=== PATIENT | male | born 1940 | race Caucasian/White ===

== ENCOUNTER 2018-05-16 09:55 | Inpatient (IN) ==
[2018-05-16] MEDS ORDERED: MethylPREDNISolone Sod Succinate Inj 125 MG/2 ML Vial IV.PUSH ONE (10:19)
[2018-05-16] MEDS ORDERED: Famotidine PF Inj 20 MG/2 ML Vial IV.PUSH ONE (10:19)
--- NOTE | 2018-05-16 10:36 | ED ---
HPI General Chief complaint: Allergic Reaction Stated complaint: allergic reaction Time Seen by Provider: 05/16/18 10:11 Source: patient Mode of arrival: EMS Limitations: no limitations History of Present Illness HPI narrative: No previous known drug allergy Past medical history significant for atrial fibrillation hypercholesterolemia hypertension gout aneurysm repair CABG. The patient stated that he was seen at an urgent care for right lower extremity cellulitis, given Bactrim DS p.o. twice daily for treatment. The medication filled yesterday and took the first medication today, within 30-40 minutes of taking the medication the patient started to develop a rash that was itchy throughout his upper extremities around part of his face and chest. Patient called 911 who gave him Benadryl and IV fluids and Zofran because by the time they showed up he was experiencing some nausea as well. The patient also c/o onset of overnight belching, nausea, diarrhea and abdominal cramps which was occurring PRIOR to taking bactrim and developing the above rash.... MD complaint: Reports allergic reaction and hives Onset (ago): minute(s) Exposure: Reports medication (bactrim) Symptoms: Reports rash, itching and nausea Severity: mild Treatment prior to arrival: Reports benadryl, IV fluids and other (by ems) Previous Allergic Reaction History: Reports none Related Data Home Medications Medication Instructions Recorded Confirmed allopurinol 300 mg PO 3XW 05/16/18 05/16/18 cilostazol 100 mg PO BID 05/16/18 05/16/18 clopidogrel 75 mg PO DAILY 05/16/18 05/16/18 lisinopril-hydrochlorothiazide 1 tab PO BID 05/16/18 05/16/18 metoprolol tartrate 50 mg PO BID 05/16/18 05/16/18 nitroglycerin 0.4 mg SUBLINGUAL Q5-15M PRN 05/16/18 05/16/18 simvastatin 40 mg PO DAILY 05/16/18 05/16/18 warfarin 2 mg PO DAILY 05/16/18 05/16/18 Allergies Allergy/AdvReac Type Severity Reaction Status Date / Time hydrocodone Allergy Severe Rash Verified 05/16/18 10:36 morphine Allergy Severe Rash Verified 05/16/18 10:36 Penicillins Allergy Severe Rash Verified 05/16/18 10:36 sulfamethoxazole Allergy Severe Rash Verified 05/16/18 10:36 [From ] trimethoprim [From ] Allergy Severe Rash Verified 05/16/18 10:36 Review of Systems ROS: all other systems reviewed are negative PMFSH History History Provided By: Patient Medical History Medical History A-fib (Acute) Aneurysm (Acute) Gout (Acute) High cholesterol (Acute) Hypertension (Acute) Surgical History Surgical History Hx of CABG (Acute) Hx of inguinal hernia surgery (Acute) Social History Social History Substance History: No History of Abuse Second Hand Smoke Exposure: No Smoking Status: Former smoker Tobacco Type: Cigarettes How Often Do You Have a Drink Containing Alcohol: Never Recent Travel in [facility] within the Last 8 Weeks: Yes Recent Out of Country Travel within the Last 8 Weeks: No Exam Narrative Exam Narrative: GENERAL: Well-nourished, well-developed patient in no apparent distress. SKIN: Warm and dry. Noted macular rash to bilateral upper extremities part of his upper torso chest anteriorly and some speckles left all over cheeks, HEAD: Atraumatic. Normocephalic. EYES: Pupils equal and round. No scleral icterus. No injection or drainage. ENT: No nasal bleeding or discharge. Mucous membranes pink and moist. No lip tongue or uvular edema NECK: Trachea midline. No JVD. No stridor CARDIOVASCULAR: tachycardic rate and regular rhythm. no rubs or gallops RESPIRATORY: No accessory muscle use. Clear to auscultation. Breath sounds equal bilaterally. No wheezing GASTROINTESTINAL: Abdomen soft, diffuse abd discomfort , nondistended. No rebound or guarding...hyperactive bowel sounds MUSCULOSKELETAL: Extremities without clubbing, cyanosis, or edema. No obvious deformities. anterior distal hand has a small abrasion that has sorrounding edema and cellulitic changes without streaking or drainage. NEUROLOGICAL: Awake and alert. No obvious cranial nerve deficits. Motor grossly within normal limits. Five out of 5 muscle strength in the arms and legs. Normal speech. PSYCHIATRIC: Appropriate mood and affect; insight and judgment normal. Course Initial Documented Vital Signs Temperature 100.1 F H 05/16/18 09:55 Pulse Rate 115 H 05/16/18 09:55 Respiratory Rate 20 05/16/18 09:55 Blood Pressure 114/63 05/16/18 09:55 Pulse Oximetry 92 L 05/16/18 09:55 Last Documented Vital Signs Temperature 100.1 F H 05/16/18 09:55 Pulse Rate 114 H 05/16/18 10:00 Respiratory Rate 20 05/16/18 09:55 Blood Pressure 114/63 05/16/18 09:55 Pulse Oximetry 92 L 05/16/18 10:00 Critical Care Time Critical Care Time: Yes Total Critical Care Time: 60 Attestation: Aggregate critical care time was 60 minutes. Time to perform other separately billable procedures was not included in the critical care time. My time did not include minutes spent treating any other patients simultaneously or on activities that did not directly contribute to the patient's treatment. The services I provided to this patient were to treat and/or prevent clinically significant deterioration I provided critical care services requiring my management, as noted below: Chart data review, documentation time, medication orders and management, vital sign assessments/reviewing monitor data, ordering and reviewing lab tests, ordering and interpreting/reviewing x-rays and diagnostic studies, care of the patient and discussion of the patient with the admitting physicians. Medical Decision Making MDM Narrative Medical decision making narrative: rash is improving greatly and no longer pruritic....however the patient was noted to be low grade fever 100.1 oral, tachy 114, and hypotensive systolic in 80's improved to high 90's and low 100 after saline bolus. this is consistent with sepsis unknown source, possibly GI (as cellulitic findings on rt LE is mild at best). CBC shows leukocytosis of 13.5, 89% neutrophilia left shift, no anemia. Mild thrombocytopenia of 132 Electrolytes show acute renal failure BUN of 34 creatinine of 2.9 GFR 21 lactic acid of 2.3 Normal CK-MB percent 0.6 however troponin elevated 0.08 suggesting this is over several days and it is not an acute less than 12-hour event(resolving nonstemi) Medical Screen Exam Complete: Yes Emergency Medical Condition: Yes Lab Data Result diagrams: 05/16/18 10:40 05/16/18 10:40 Lab Results 05/16/18 05/16/18 05/16/18 Range/Units 10:40 10:40 10:40 CBC w Diff Auto diff final WBC 13.5 H (4.0-11.0) th/mm3 RBC 4.35 L (4.50-5.90) mil/mm3 Hgb 11.7 L (13.0-17.0) gm/dL Hct 36.5 L (39.0-51.0) % MCV 84.1 (80.0-100.0) fL MCH 27.0 (27.0-34.0) pg MCHC 32.1 (32.0-36.0) % RDW 15.1 (11.6-17.2) % Plt Count 132 L (150-450) th/mm3 MPV 9.4 (7.0-11.0) fL Neut % (Auto) 88.7 H (16.0-70.0) % Lymph % (Auto) 4.4 L (9.0-44.0) % Briscoe % (Auto) 4.1 (0.0-8.0) % Eos % (Auto) 2.6 (0.0-4.0) % Baso % (Auto) 0.2 (0.0-2.0) % Neut # (Auto) 11.9 H (1.8-7.7) th/mm3 Lymph # (Auto) 0.6 L (1.0-4.8) th/mm3 Briscoe # (Auto) 0.6 (0.0-0.9) th/mm3 Eos # (Auto) 0.4 (0.0-0.4) th/mm3 Baso # (Auto) 0.0 (0.0-0.2) th/mm3 WBC Differential . Differential Comment . Sodium 139 (136-145) meq/L Potassium 4.3 (3.5-5.1) meq/L Chloride 108 H (98-107) meq/L Carbon Dioxide 23.4 (21.0-32.0) meq/L Anion Gap 8 (5-15) meq/L BUN 34 H (7-18) mg/dL Creatinine 2.90 H (0.60-1.30) mg/dL Estimated GFR 21 L (>89) mL/min Random Glucose 128 H (74-106) mg/dL Lactic Acid 2.3 H (0.4-2.0) mmol/L Calcium 8.0 L (8.5-10.1) mg/dL Total Bilirubin 0.8 (0.2-1.0) mg/dL AST 14 L (15-37) U/L ALT 13 (12-78) U/L Alkaline Phosphatase 85 (45-117) U/L Total Creatine Kinase 357 H (39-308) U/L CK-MB (CK-2) 2.1 (0.5-3.6) ng/mL CK-MB (CK-2) % 0.6 (0.0-4.0) % Troponin I 0.08 H (0.02-0.05) ng/mL Total Protein 6.0 L (6.4-8.2) g/dL Albumin 2.8 L (3.4-5.0) g/dL Imaging Data Radiologist's impression: Chest X-Ray 05/16/18 10:17 CONCLUSION: The lungs are clear. Discharge Plan Discharge Disposition [place] [facility] [place] Condition: Fair Discharge Details Diagnosis: Septic shock, Cellulitis, Renal failure Physicians Team ED Provider: Juwan Perez Primary Care Provider: UNKNOWN, Rxs /Orders / Referrals /Forms Prescriptions: No Action cilostazol 100 mg Tablet 100 mg PO BID RF: 0 lisinopril-hydrochlorothiazide 20-12.5 mg Tablet 1 tab PO BID RF: 0 clopidogrel 75 mg Tablet 75 mg PO DAILY RF: 0 simvastatin 40 mg Tablet 40 mg PO DAILY RF: 0 warfarin 2 mg Tablet 2 mg PO DAILY RF: 0 metoprolol tartrate 50 mg Tablet 50 mg PO BID RF: 0 nitroglycerin 0.4 mg Tablet, Sublingual 0.4 mg SUBLINGUAL Q5-15M PRN (Reason: Chest Pain) RF: 0 allopurinol 300 mg Tablet 300 mg PO 3XW RF: 0 Status ED Status: With Doctor
--- NOTE | 2018-05-16 10:46 | XR ---
EXAM DATE: 05/16/2018 10:43 AM EST AGE/SEX: 78 years / Male INDICATIONS: Medication reaction for lower extremity infection. Patient states rash and nausea. CLINICAL DATA: This is the patient's initial encounter. Patient reports that signs and symptoms have been present for 1 day and indicates a pain score of 2/10. MEDICAL/SURGICAL HISTORY: Hypercholesterolemia. Hypertension. Gout. A-fib. Abdominal aortic a neurysm repair. CABG. Inguinal hernia repair. COMPARISON: No prior exams available for comparison. FINDINGS: A single AP view of the chest demonstrates the lungs to be symmetrically aerated without evidence of mass, infiltrate or effusion. Status post CABG. The cardiomediastinal contours are unremarkable. Oss eous structures are intact. CONCLUSION: The lungs are clear. Electronically signed by: José Manuel Chaparro MD Board Certified Radiologist 05/16/2018 10:45 AM EST
[2018-05-16] MEDS ORDERED: Acetaminophen 325 MG Tablet PO ONE (11:03)
[2018-05-16 11:11] LABS: Baso % (Auto) 0.2 % (0.0-2.0); Eos # (Auto) 0.4 th/mm3 (0.0-0.4); Eos % (Auto) 2.6 % (0.0-4.0); Hematocrit 36.5 % (39.0-51.0); Hemoglobin 11.7 gm/dL (13.0-17.0); Lymph # (Auto) 0.6 th/mm3 (1.0-4.8); Lymph % (Auto) 4.4 % (9.0-44.0); Mean Corpuscular HGB Conc 32.1 % (32.0-36.0); Mean Corpuscular Volume 84.1 fL (80.0-100.0); Mean Platelet Volume 9.4 fL (7.0-11.0); Mono # (Auto) 0.6 th/mm3 (0.0-0.9); Mono % (Auto) 4.1 % (0.0-8.0); Neut # (Auto) 11.9 th/mm3 (1.8-7.7); Neut % (Auto) 88.7 % (16.0-70.0); Platelet Count 132 th/mm3 (150-450); Red Blood Count 4.35 mil/mm3 (4.50-5.90); Red Cell Distribution Width 15.1 % (11.6-17.2); White Blood Count 13.5 th/mm3 (4.0-11.0)
[2018-05-16 11:25] LABS: Chloride 108 meq/L (98-107); Potassium 4.3 meq/L (3.5-5.1); Sodium 139 meq/L (136-145)
[2018-05-16 11:28] LABS: Albumin 2.8 g/dL (3.4-5.0); Anion Gap 8 meq/L (5-15); Blood Urea Nitrogen 34 mg/dL (7-18); Carbon Dioxide 23.4 meq/L (21.0-32.0); Glucose,Random 128 mg/dL (74-106)
[2018-05-16 11:31] LABS: Alanine Aminotransferase 13 U/L (12-78); Aspartate Aminotransferase 14 U/L (15-37); Glomerular Filtration Rate 21 mL/min (>89)
[2018-05-16 11:34] LABS: Alkaline Phosphatase 85 U/L (45-117); Creatine Kinase 357 U/L (39-308)
[2018-05-16 11:36] LABS: Troponin I 0.08 ng/mL (0.02-0.05)
[2018-05-16 11:46] LABS: CKMB Percent 0.6 % (0.0-4.0); Creatine Kinase MB 2.1 ng/mL (0.5-3.6)
[2018-05-16] MEDS ORDERED: Sodium Chlor 0.9% Inj 500 ML IV.SIG SCH ×2 (12:00)
[2018-05-16] MEDS ORDERED: Acetaminophen 325 MG Tablet PO PRN (12:06)
[2018-05-16] MEDS ORDERED: Bisacodyl 10 MG Supp RECTAL PRN (12:06)
[2018-05-16] MEDS ORDERED: Aztreonam Inj 2 GM in Sodium Chloride 0.9% Inj 100 ML IV.SIG ONE (12:08)
[2018-05-16] MEDS ORDERED: Dextrose 50% in Water 50 ML Vial IV.PUSH PRN (12:10)
[2018-05-16 12:11] LABS: Activated Partial Thrombo Time 32.9 sec (23.4-31.7); Prothrombin Time 20.4 sec (9.8-11.6)
[2018-05-16] MEDS ORDERED: Norepinephrine Inj 16 MG in Sodium Chlor 0.9% Inj 234 ML IV.CONT PRN (12:13)
--- NOTE | 2018-05-16 12:50 | CT ---
EXAM DATE: 05/16/2018 12:39 PM EST AGE/SEX: 78 years / Male INDICATIONS: Abdominal cramps, nausea and diarrhea. Low blood pressure. Allergic reaction of hives t o a medication yesterday. CLINICAL DATA: This is the patient's initial encounter. Patient reports that signs and symptoms have been present for 1 day and indicates a pain score of 0/10. MEDICAL/SURGICAL HISTORY: Cardiovascular disease. Hypertension. Abdominal aortic aneurysm repa ir. CABG. Inguinal hernia repair. RADIATION DOSE: 21.94 CTDI (mGy) COMPARISON: No prior exams available for comparison. TECHNIQUE: Multiple contiguous axial images were obtained through the abdomen. Images were obtained using multiple row detector helical technique. Using automated exposure control and adjustment of the mA and/or kV according to patient size, radiation dose was kept as low as reasonably achievable to o btain optimal diagnostic quality images. DICOM format image data is available electronically for rev iew and comparison. FINDINGS: There is bibasilar atelectasis versus scar. The liver is normal in size and free of focal defects. Mu ltiple calcified granulomas are present in the spleen. The gallbladder and pancreas are unremarkable . No intrahepatic or extrahepatic ductal dilatation is seen. The adrenal glands are unremarkable. The re are simple cysts on the right the largest measuring 4 cm. The left kidney is unremarkable. There i s previous repair of a midline hernia with hernia defect bulging into the subcutaneous tissues but no signs of incarceration. The prostate gland is moderately enlarged impinging on the bladder base. There is extensive diverticu losis with inflammatory change at the junction of descending colon and sigmoid which may reflect dive rticulitis. There is no evidence of abscess. This is a very short segment of 4 to 5 cm. Stents are present in aneurysms of the common iliac arteries bilaterally. Contrast is not administere d in the presence or absence of leak cannot be determined. There is no evidence of retroperitoneal he matoma. CONCLUSION: Findings of diverticulitis without abscess at the junction of descending and sigmoid colon Bilateral iliac artery stents as above. 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 CT angiography could be performed to further evaluate this if clinically indicated Electronically signed by: Gio Canales MD Board Certified Radiologist 05/16/2018 12:49 PM EST
[2018-05-16] MEDS: Sod Chloride 0.9% Inj 1,000 ML IV.CONT SCH ×2 (12:51→23:31)
[2018-05-16] MEDS ORDERED: Vancomycin Consult Pharmacy OTHER PRN (14:00)
[2018-05-16] MEDS: Heparin - SQ 10,000 UNITS/ML Vial SQ SCH (14:27)
--- NOTE | 2018-05-16 14:49 | US ---
EXAM DATE: 05/16/2018 2:45 PM EST AGE/SEX: 78 years / Male INDICATIONS: Lower extremity cellulitis with sepsis. CLINICAL DATA: This is the patient's initial encounter. Patient reports that signs and symptoms have been present for 2 days and indicates a pain score of 0/10. MEDICAL/SURGICAL HISTORY: Hypercholesterolemia. Hypertension. Gout. Atrial fibrillation. CAB G. Umbilical hernia repair. Multiple aneurysm repair in the abdomen and the lower extremities. Bila teral GSV removal. COMPARISON: No prior exams available for comparison. TECHNIQUE: Venous ultrasound of both lower extremities was performed from the inguinal ligament to t he proximal calf. Real-time, color Doppler and spectral tracing, compression and augmentation techni ques were used. FINDINGS: Right Leg: Normal compression of the deep venous system from the inguinal region to the proximal hakan f. No echogenic clot is seen. Normal response of the venous system to augmentation and respiration. Left Leg: Normal compression of the deep venous system from the inguinal region to the proximal calf . No echogenic clot is seen. Normal response of the venous system to augmentation and respiration. Other: Heterogeneous fluid collections in the popliteal fossa measures 5.5 x 3.4 x 3.4 cm on the rig ht and 5.6 x 2.5 x 3.4 cm and the left. There also appears to be occlusion of the left superficial fe moral artery with severe peripheral vascular disease. CONCLUSION: 1. The study is negative for bilateral lower extremity deep venous thrombosis. 2. Probable hematomas within the popliteal fossa bilaterally likely postsurgical. 3. 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 Electronically signed by: José Manuel Chaparro MD Board Certified Radiologist 05/16/2018 2:47 PM EST
--- NOTE | 2018-05-16 15:06 | US ---
EXAM DATE: 05/16/2018 2:32 PM EST AGE/SEX: 78 years / Male INDICATIONS: Increased BUN and Creatinine. Sepsis. CLINICAL DATA: This is the patient's initial encounter. Patient reports that signs and symptoms have been present for 1 day and indicates a pain score of 0/10. MEDICAL/SURGICAL HISTORY: Hypercholesterolemia. Hypertension. Cardiovascular disease. Gout. Atrial fibrillation. CABG. Multiple aneurysm repair. Umbilical hernia repair. COMPARISON: [facility], CT ABDOMEN & PELVIS W/O CONTRAST, 05/16/2018. . MEASUREMENTS: Right Kidney:__11.5 x 5.8 x 6.4 cm Left Kidney:__10.6 x 6.8 x 6.4 cm FINDINGS: Echogenic kidneys characteristic of medical renal disease. There is prominent renal sinus fat. Exophy tic cyst right kidney measuring up to 6.2 cm in diameter. Other smaller cysts in the right kidney. No left renal mass. No hydronephrosis. Bladder wall appears thickened. CONCLUSION: 1. Echogenic kidneys characteristic of medical renal disease. Right renal cysts. No hydronephrosis. Thickened bladder wall. Electronically signed by: Francis Lui MD Board Certified Radiologist 05/16/2018 3:05 PM EST
[2018-05-16] MEDS ORDERED: Vancomycin Inj 1,600 MG in Sodium Chlor 0.9% Inj 500 ML IV.SIG ONE (16:00)
--- NOTE | 2018-05-16 16:22 | P.HPCC ---
History of Present Illness Service: Critical care medicine Primary Care Physician: UNKNOWN Chief Complaint: Weakness/rash History of Present Illness: This is a 78-year-old male. Date of admission 05/16/2018. Past medical history includes coronary disease status post CABG x4, peripheral vascular disease, hypertension, hyperlipidemia gout and chronic warfarin use. On Sunday, patient had a fall and had an abrasion to the anterior tibial aspect of his right lower extremity. He went to an urgent care and received trimethoprim/sulfamethoxazole 1 tablet twice daily for treatment. He did not take the steroids because overnight he had some abdominal pain/nausea and vomiting which has since resolved. This is consistent diarrhea. He took his first dose of the medicine today within 40 minutes started to develop a rash is itchy and involves his bilateral upper and lower extreme is. Patient emergently called 911 who gave him diphenhydramine, ondansetron and intravenous fluids. Was evaluated to [facility] and received diphenhydramine and famotidine and 1 dose of steroids. Patient became hypotensive and was started on norepinephrine drip intravenously. CT emesis post revealed sigmoid diverticulitis. He has been given vancomycin, aztreonam and metronidazole. Due to multiple creatinine is currently 2.9. Due to his multiple comorbid patient was transferred to the main campus for further evaluation. He is currently been weaned off his vasopressors. We are asked to admit the patient. - Diagnosis (1) Drug reaction (2) Acute kidney injury (3) Peripheral vascular disease (4) Gout (5) Severe sepsis (6) Essential hypertension (7) Hyperlipidemia (8) Chronic anticoagulation (9) Atrial fibrillation (10) Abdominal aortic aneurysm (11) Diverticulitis large intestine (12) Renal cyst, right (13) Leukocytosis (14) Normocytic anemia (15) Thrombocytopenia (16) Occlusion of left saphenous vein (17) Cellulitis Inpatient Certification: I certify that the inpatient services were ordered in accordance with Medicare regulations governing the order. This includes certification that hospital inpatient services are reasonable and necessary and in the case of services not specified as inpatient-only under 42 CFR 419.22(n), that they are appropriately provided as inpatient services in accordance to with the 2-midnight benchmark under 43 CFR 412.3(e) Estimated Total Length of Stay (Days): 5 Plans for Post Hospital Care: Not yet determined Review of Systems Constitutional: Reports body ache(s), Reports chills, Reports fever(s), Reports night sweats, Reports weakness, Denies anorexia, Denies weight gain Eyes: Denies blind spots, Denies blurry vision Ears, Nose, Mouth, and Throat: Denies abnormal hearing, Denies lip swelling, Denies pain with swallowing, Denies sinus pain Cardiovascular: Denies chest pain, Denies shortness of breath, Denies shortness of breath with activity, Denies shortness of breath when lying down Respiratory: Denies cough, Denies shortness of breath, Denies shortness of breath with activity Gastrointestinal: Reports abdominal pain, Reports nausea, Denies vomiting Genitourinary: Denies urinary frequency, Denies urinary hesitancy, Denies urinary incontinence Musculoskeletal: Denies back pain, Denies muscle weakness, Denies stiffness Skin/Breast: Reports lesions, Reports rash, Denies itching Neurologic: Denies headache(s), Denies restless legs, Denies sensory deficit Psychiatric: Reports anxiety, Denies confusion, Denies depression Endocrine: Denies cold intolerance, Denies excessive sweating Hematologic/Lymphatic: Reports easy bleeding, Denies easy bruising Allergic/Immunologic: Denies GI upset with certain foods PMFSH - History History Provided By: Patient - Medical History Medical History: Medical History (Last Updated 05/16/18 @ 16:16 by Emeterio Guzman MD) A-fib Aneurysm Encounter for imaging of bilateral greater saphenous veins Gout High cholesterol Hypertension Peripheral vascular disease - Surgical History Surgical History: Surgical History (Last Updated 05/16/18 @ 16:16 by Emeterio Guzman MD) Hx of CABG Hx of inguinal hernia surgery Status post insertion of iliac artery stent - Tobacco History Second Hand Smoke Exposure: No Tobacco Use In Past 30 Days: No Smoking Status: Former smoker Tobacco Type: Cigarettes - Alcohol History How Often Do You Have a Drink Containing Alcohol: Never - Substance Use History Substance History: No History of Abuse - Travel History Recent Travel in the [place] Within the Last 8 Weeks: Yes Recent Travel Out of the Country Within the Last 8 Weeks: No - Immunization History Tetanus Immunization: <5 Years Medications and Allergies Active Medications: Active Medications Acetaminophen (Tylenol) 650 mg PO Q6H PRN PRN Reason: PAIN 1-10 AND/OR FEVER >101F Al Hydroxide/Mg Hydroxide (Milk Of Magnesia Liq) 30 ml PO Q12H PRN PRN Reason: Mild Constipation Albuterol (Albuterol Neb (Prn)) 2.5 mg NEB Q2HR NEB PRN PRN Reason: SHORTNESS OF BREATH/WHEEZING Bisacodyl (Dulcolax Supp) 10 mg RECTAL DAILY PRN PRN Reason: SEVERE CONSITIPATION Chlorhexidine Gluconate (Chlorhexidine 2% Cloth) 3 pack TOPICAL DAILY@0400 ROSINA Stop: 05/22/18 03:59 Chlorhexidine Gluconate (Chlorhexidine 2% Cloth) 3 pack TOPICAL DAILY@0400 PRN PRN Reason: Extra cloth needed Stop: 05/22/18 03:59 Clopidogrel Bisulfate (Plavix) 75 mg PO DAILY ROSINA Dexamethasone Sodium Phosphate (Decadron Inj) 4 mg IV.PUSH Q6HR ROSINA Stop: 05/18/18 12:01 Dextrose (D50w Vial) 50 ml IV.PUSH UNSCH PRN PRN Reason: PER HYPOGLYCEMIA PROTOCOL Diphenhydramine HCl (Benadryl Inj) 25 mg IV.PUSH Q6H ROSINA Stop: 05/18/18 08:01 Last Admin: 05/16/18 14:24 Dose: 25 mg Famotidine (Pepcid Pf Inj) 10 mg IV.PUSH Q12HR ROSINA Glucagon (Glucagon Inj) 1 mg OTHER PRN PRN PRN Reason: for Hypoglycemia Protocol Heparin Sodium (Porcine) (Heparin Inj) 5,000 units SQ Q12H ROSINA Last Admin: 05/16/18 14:27 Dose: 5,000 units Sodium Chloride (Ns Inj) 1,000 mls @ 84 mls/hr IV.CONT .[id number] [facility] Last Admin: 05/16/18 12:51 Dose: 84 mls/hr Aztreonam 1,000 mg/ Sodium (Chloride) 100 mls @ 200 mls/hr IV.SIG Q12H ROSINA Metronidazole/Sodium Chloride (Flagyl 500 Mg Inj) 100 mls @ 100 mls/hr IV.SIG Q6H ROSINA Norepinephrine Bitartrate 16 (mg/ Sodium Chloride) 250 mls @ 1.87 mls/hr IV.CONT TITRATE PRN; Protocol PRN Reason: See Protocol Vancomycin HCl 1,600 mg/ (Sodium Chloride) 516 mls @ 250 mls/hr IV.SIG ONCE ONE Stop: 05/16/18 18:03 Insulin Aspart (Novolog Insulin Correctional Sugar Inj) 0 unit SQ Q6HR ROSINA; Protocol Lactulose (Lactulose Liq) 30 ml PO DAILY PRN PRN Reason: SEVERE CONSITIPATION Ondansetron HCl (Zofran Inj) 4 mg IV.PUSH Q6H PRN PRN Reason: NAUSEA OR VOMITING Pharmacy Profile Note (Vancomycin Consult Pharmacy) 1 each OTHER UNSCH PRN PRN Reason: Pharmacy to dose Senna/Docusate Sodium (Eula-Colace) 1 tab PO BID [facility] Sennosides (Senokot) 17.2 mg PO Q12H PRN PRN Reason: Moderate Constipation Sodium Chloride (Ns Flush) 2 ml IV.FLUSH BID [facility] Sodium Chloride (Ns Flush) 2 ml IV.FLUSH PRN PRN PRN Reason: FLUSH AFTER USING IV ACCESS Terbutaline Sulfate (Brethine Inj) 1 mg SQ UNSCH PRN PRN Reason: For Extravasation Allergies Allergy/AdvReac Type Severity Reaction Status Date / Time hydrocodone Allergy Severe Rash Verified 05/16/18 10:36 morphine Allergy Severe Rash Verified 05/16/18 10:36 Penicillins Allergy Severe Rash Verified 05/16/18 10:36 sulfamethoxazole Allergy Severe Rash Verified 05/16/18 10:36 [From ] trimethoprim [From ] Allergy Severe Rash Verified 05/16/18 10:36 Home Medications Medication Instructions Recorded Confirmed Type allopurinol 300 mg PO 3XW 05/16/18 05/16/18 History cilostazol 100 mg PO BID 05/16/18 05/16/18 History clopidogrel 75 mg PO DAILY 05/16/18 05/16/18 History lisinopril-hydrochlorothiazide 1 tab PO BID 05/16/18 05/16/18 History metoprolol tartrate 50 mg PO BID 05/16/18 05/16/18 History nitroglycerin 0.4 mg SUBLINGUAL Q5-15M PRN 05/16/18 05/16/18 History simvastatin 40 mg PO HS 05/16/18 05/16/18 History warfarin 2 mg PO DAILY 05/16/18 05/16/18 History Results - Labs CBC & Chem 7: 05/16/18 10:40 05/16/18 10:40 Labs: Short CBC 05/16/18 Range/Units 10:40 WBC 13.5 H (4.0-11.0) th/mm3 Hgb 11.7 L (13.0-17.0) gm/dL Hct 36.5 L (39.0-51.0) % Plt Count 132 L (150-450) th/mm3 BMP 05/16/18 10:40 Sodium 139 Potassium 4.3 Chloride 108 H Carbon Dioxide 23.4 BUN 34 H Creatinine 2.90 H Calcium 8.0 L Cardiac Enzymes 05/16/18 Range/Units 10:40 Total Creatine Kinase 357 H (39-308) U/L CK-MB (CK-2) 2.1 (0.5-3.6) ng/mL Troponin I 0.08 H (0.02-0.05) ng/mL Liver Function 05/16/18 Range/Units 10:40 Total Bilirubin 0.8 (0.2-1.0) mg/dL AST 14 L (15-37) U/L ALT 13 (12-78) U/L Alkaline Phosphatase 85 (45-117) U/L Albumin 2.8 L (3.4-5.0) g/dL - Imaging Impressions Venous Doppler Study 05/16/18 00:00 CONCLUSION: 1. The study is negative for bilateral lower extremity deep venous thrombosis. 2. Probable hematomas within the popliteal fossa bilaterally likely postsurgical. 3. 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 Chest X-Ray 05/16/18 10:17 CONCLUSION: The lungs are clear. Abdomen/Pelvis CT 05/16/18 11:55 CONCLUSION: Findings of diverticulitis without abscess at the junction of descending and sigmoid colon Bilateral iliac artery stents as above. 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 CT angiography could be performed to further evaluate this if clinically indicated Abdomen/Bladder Ultrasound 05/16/18 12:11 CONCLUSION: 1. Echogenic kidneys characteristic of medical renal disease. Right renal cysts. No hydronephrosis. Thickened bladder wall. Exam Vital signs: Vital Signs 05/16/18 09:55 05/16/18 10:00 05/16/18 10:15 Temperature 100.1 F H Pulse Rate 115 H 114 H 118 H Respiratory Rate 20 18 Blood Pressure 114/63 105/50 L Pulse Oximetry 92 L 92 L 91 L 05/16/18 10:30 05/16/18 10:45 Temperature Pulse Rate 112 H 116 H Respiratory Rate 16 18 Blood Pressure 97/58 L 75/53 L Pulse Oximetry 92 L 92 L Intake & Output 05/15/18 05/16/18 05/16/18 18:59 06:59 18:59 Intake Total 2200 / 2200 Output Total 0 / 0 Balance 2200 / 2200 Weight 103.873 kg Intake: IV 1200 / 1200 Azactam Inj 2 GM In NS Inj 100 100 / 100 ML @ 200 mls/hr IV.SIG ONCE ONE Rx#:[id number] NS Inj 500 ML @ 1000 mls/hr IV. 1000 / 1000 SIG BOLUS ROSINA Rx#:[id number] Flagyl 500 MG Inj 100 ML @ 100 100 / 100 mls/hr IV.SIG ONCE ONE Rx#: [id number] Other 1000 / 1000 Output: Urine 0 / 0 Other: Other Intake Source Saline Solution Narrative: GENERAL: 74-year-old male currently resting in bed in no acute distress SKIN: Warm and dry. Rash HEAD: Atraumatic. Normocephalic. EYES: Pupils equal and round. No scleral icterus. No injection or drainage. ENT: No nasal bleeding or discharge. Mucous membranes pink and moist. NECK: Trachea midline. No JVD. CARDIOVASCULAR: Tachycardia, IR. S1, S2. No S4. RESPIRATORY: No accessory muscle use. Clear to auscultation. Breath sounds equal bilaterally. GASTROINTESTINAL: Abdomen soft, obese. Hypoactive bowel sounds appreciated. No rebound. MUSCULOSKELETAL: Extremities bilateral lower extremity edema. Noted cellulitis to the anterior tibial region of the right lower extremity NEUROLOGICAL: Awake and alert. No obvious cranial nerve deficits. Motor grossly within normal limits. Five out of 5 muscle strength in the arms and legs. Normal speech. PSYCHIATRIC: Appropriate mood and affect; insight and judgment normal. Septic Shock Reassessment Septic shock perfusion: reassessment completed Caprini VTE Risk Assessment Caprini VTE Risk Assessment: Moderate/High Risk (score >= 2) Caprini Risk Assessment Model: Point Value = 1 Point Value = 2 Point Value = 3 Point Value = 5 Age 41-60 Minor surgery BMI > 25 kg/m2 Swollen legs Varicose veins or History of unexplained or recurrent spontaneous Oral contraceptives or hormone replacement Sepsis (< 1 month) Serious lung disease, including pneumonia (< 1 month) Abnormal pulmonary function Acute myocardial infarction Congestive heart failure (< 1 month) History of inflammatory bowel disease Medical patient at bed rest Age 61-74 Arthroscopic surgery Major open surgery (> 45 min) Laparoscopic surgery (> 45 min) Malignancy Confined to bed (> 72 hours) Immobilizing plaster cast Central venous access Age >= 75 History of VTE Family history of VTE Factor V Leiden Prothrombin [id number] Lupus anticoagulant Anticardiolipin antibodies Elevated serum homocysteine Heparin-induced thrombocytopenia Other congenital or acquired thrombophilia Stroke (< 1 month) Elective arthroplasty Hip, pelvis, or leg fracture Acute spinal cord injury (< 1 month) Prophylaxis Regimen: Total Risk Factor Score Risk Level Prophylaxis Regimen 0-1 Low Early ambulation 2 Moderate Order ONE of the following: *Sequential Compression Device (SCD) *Heparin 5000 units SQ BID 3-4 Higher Order ONE of the following medications: *Heparin 5000 units SQ TID *Enoxaparin/Lovenox 40 mg SQ daily (WT < 150 kg, CrCl > 30 mL/min) *Enoxaparin/Lovenox 30 mg SQ daily (WT < 150 kg, CrCl > 10-29 mL/min) *Enoxaparin/Lovenox 30 mg SQ BID (WT < 150 kg, CrCl > 30 mL/min) AND/OR *Sequential Compression Device (SCD) 5 or more Highest Order ONE of the following medications: *Heparin 5000 units SQ TID (Preferred with Epidurals) *Enoxaparin/Lovenox 40 mg SQ daily (WT < 150 kg, CrCl > 30 mL/min) *Enoxaparin/Lovenox 30 mg SQ daily (WT < 150 kg, CrCl > 10-29 mL/min) *Enoxaparin/Lovenox 30 mg SQ BID (WT < 150 kg, CrCl > 30 mL/min) AND *Sequential Compression Device (SCD) Assessment and Plan - Problem List (1) Drug reaction Code(s): T50.905A - Adverse effect of unspecified drugs, medicaments and biological substances, initial encounter Status: Acute (2) Acute kidney injury Code(s): N17.9 - Acute kidney failure, unspecified Status: Acute (3) Peripheral vascular disease Code(s): I73.9 - Peripheral vascular disease, unspecified Status: Chronic (4) Gout Code(s): M10.9 - Gout, unspecified Status: Chronic (5) Severe sepsis Code(s): A41.9 - Sepsis, unspecified organism; R65.20 - Severe sepsis without septic shock Status: Acute (6) Essential hypertension Code(s): I10 - Essential (primary) hypertension Status: Chronic (7) Hyperlipidemia Code(s): E78.5 - Hyperlipidemia, unspecified Status: Chronic (8) Chronic anticoagulation Code(s): Z79.01 - correction (current) use of anticoagulants Status: Chronic (9) Atrial fibrillation Code(s): I48.91 - Unspecified atrial fibrillation Status: Chronic (10) Abdominal aortic aneurysm Code(s): I71.4 - Abdominal aortic aneurysm, without rupture Status: Chronic (11) Diverticulitis large intestine Code(s): K57.32 - Diverticulitis of large intestine without perforation or abscess without bleeding Status: Acute (12) Renal cyst, right Code(s): N28.1 - Cyst of kidney, acquired Status: Chronic (13) Leukocytosis Code(s): D72.829 - Elevated white blood cell count, unspecified Status: Acute (14) Normocytic anemia Code(s): D64.9 - Anemia, unspecified Status: Acute (15) Thrombocytopenia Code(s): D69.6 - Thrombocytopenia, unspecified Status: Acute (16) Occlusion of left saphenous vein Code(s): I82.812 - Embolism and thrombosis of superficial veins of left lower extremity Status: Acute (17) Cellulitis Code(s): L03.90 - Cellulitis, unspecified Status: Acute - Assessment and Plan Plan: Neuro/Psych: Acetaminophen 650 mg p.o. every 6 hours as needed fever Noted allergies to hydrocodone and morphine sulfate CV: Severe sepsis with lactic acidosis Atrial fibrillation with rapid ventricular response Essential hypertension Hyperlipidemia Coronary disease status post CABG x4 Peripheral vascular disease Bilateral greater saphenous vein removal Bilateral iliac stent placement Elevated troponin 0 08 Holding lisinopril/hydrochlorthiazide 20/25 1 tablet twice daily in light of acute injury/vasopressor usage Holding metoprolol tartrate 50 mg twice daily in light of hypotension Holding simvastatin 40 mg daily. Resume if clinically indicated for hyperlipidemia Continue clopidogrel 75 mg daily for peripheral vascular disease. Holding Cilostazol 100 mg twice daily. Resume clinically indicated Lower extremity Doppler revealed left SFA occlusion. Popliteal fossa masses bilaterally. Bocanegra's cyst versus hematomas Serial lactates until cleared. Currently 1.5 Echocardiogram ordered. Serial troponins will downward trend Resp: Nasal cannula to maintain saturations greater than equal to 90% Incentive spirometry while awake As needed albuterol aerosols every 2 hours. Dyspnea Chest x-ray revealed no acute cardiopulmonary findings GI: Diverticulitis CT abdomen/pelvis revealed sigmoid/descending diverticulitis. Bilateral iliac stents. Currently on aztreonam and metronidazole. N.p.o. status currently. Likely can advance to clear liquid diet Famotidine for GI prophylaxis Docusate serum/senna 1 tablet twice daily for bowel regimen : Straight catheterization as needed. No indication for Lala catheter Endo: Hyperglycemia Sliding scale insulin Accu-Cheks to maintain euglycemia Gout Holding allopurinol 300 mg 3 times weekly. Resume when clinically indicated Renal: Acute kidney injury Right renal cyst No signs of hydronephrosis on renal ultrasound. Check urine eosinophils, sodium and creatinine Avoid nephrotoxic medication Monitor urine output Accurate I's and O's Heme: Leukocytosis Normocytic anemia Thrombocytopenia Chronic warfarin use Monitor CBC daily. Follow trends. No indication for transfusion of blood products at this time Currently warfarin 2 mg daily. Continue. Daily INR ID: Right lower extremity cellulitis Sigmoid diverticulitis Currently on vancomycin, aztreonam and metronidazole day #1 Blood cultures x2 pending MSK: Elevated BMI PT evaluate and treat Weight loss encouraged FEN: Currently on 0.9% NaCl at 84 cc an hour Replace electrolytes as clinically indicated Access -Utilize peripheral IV. Central line if indicated Prophylaxis -GI -pantoprazole -DVT -CT/warfarin Critical care time 35 minutes Code Status: Full code Discussed Condition With: Patient. Care plan discussed and all questions answered (1) Drug reaction Qualifiers: Encounter type: sequela Qualified Code(s): T50.905S - Adverse effect of unspecified drugs, medicaments and biological substances, sequela (4) Gout Qualifiers: Gout site: unspecified site Gout etiology: unspecified cause Chronicity: unspecified Qualified Code(s): M10.9 - Gout, unspecified (7) Hyperlipidemia Qualifiers: Hyperlipidemia type: unspecified Qualified Code(s): E78.5 - Hyperlipidemia, unspecified (9) Atrial fibrillation Qualifiers: Atrial fibrillation type: unspecified Qualified Code(s): I48.91 - Unspecified atrial fibrillation (10) Abdominal aortic aneurysm Qualifiers: Presence of rupture: without rupture Qualified Code(s): I71.4 - Abdominal aortic aneurysm, without rupture (11) Diverticulitis large intestine Qualifiers: Diverticulitis complication: unspecified complication status (13) Leukocytosis Qualifiers: Leukocytosis type: unspecified Qualified Code(s): D72.829 - Elevated white blood cell count, unspecified (17) Cellulitis Qualifiers: Site of cellulitis: extremity Site of cellulitis of extremity: lower extremity Laterality: right Qualified Code(s): L03.115 - Cellulitis of right lower limb
[2018-05-16] MEDS ORDERED: Warfarin Consult Pharmacy OTHER PRN (16:37)
--- NOTE | 2018-05-16 16:59 | ECG ---
Date Performed: 05/16/2018 Time Performed: 13:07:36 PTAGE: 78 years EKG: SINUS TACHYCARDIA PROBABLE INFERIOR MYOCARDIAL INFARCTION ABNORMAL ECG NO PREVIOUS TRACING DOCTOR: Garrett Riley Interpretating Date/Time 05/16/2018 16:58:02
[2018-05-16] MEDS: Insulin NovoLOG Aspart Correctional Sugar Inj SQ SCH (17:37)
[2018-05-16] MEDS: Famotidine PF Inj 20 MG/2 ML Vial IV.PUSH SCH (20:20)
[2018-05-16] MEDS: Senna/Docusate Sodium 8.6/50 MG Tablet PO SCH (20:20)
[2018-05-16 20:27] LABS: Creatinine,Urine Random 236 mg/dL (27-300); Sodium,Urine Random 19 meq/L
[2018-05-17] MEDS: Heparin - SQ 10,000 UNITS/ML Vial SQ SCH ×2 (02:39→19:21)
[2018-05-17] MEDS: Insulin NovoLOG Aspart Correctional Sugar Inj SQ SCH ×4 (02:40→17:35)
[2018-05-17] MEDS ORDERED: Chlorhexidine Gluconate 2% 1 Pack (2 Cloths) TOPICAL PRN (04:00)
[2018-05-17] MEDS: Chlorhexidine Gluconate 2% 1 Pack (2 Cloths) TOPICAL SCH (04:59)
[2018-05-17 05:48] LABS: Baso % (Auto) 0.1 % (0.0-2.0); Eos # (Auto) 0.1 th/mm3 (0.0-0.4); Eos % (Auto) 0.5 % (0.0-4.0); Hematocrit 33.3 % (39.0-51.0); Hemoglobin 10.7 gm/dL (13.0-17.0); Lymph # (Auto) 0.6 th/mm3 (1.0-4.8); Mean Corpuscular Hemoglobin 26.9 pg (27.0-34.0); Mean Corpuscular Volume 83.9 fL (80.0-100.0); Mean Platelet Volume 8.3 fL (7.0-11.0); Mono # (Auto) 0.2 th/mm3 (0.0-0.9); Neut # (Auto) 10.8 th/mm3 (1.8-7.7); Neut % (Auto) 92.4 % (16.0-70.0); Platelet Count 103 th/mm3 (150-450); Red Blood Count 3.97 mil/mm3 (4.50-5.90); Red Cell Distribution Width 16.3 % (11.6-17.2); White Blood Count 11.7 th/mm3 (4.0-11.0)
[2018-05-17 06:01] LABS: Activated Partial Thrombo Time 39.2 sec (23.4-31.7); INR 1.9 Ratio; Prothrombin Time 19.4 sec (9.8-11.6)
[2018-05-17 06:22] LABS: Alanine Aminotransferase 17 U/L (12-78); Albumin 2.8 g/dL (3.4-5.0); Anion Gap 11 meq/L (5-15); Aspartate Aminotransferase 31 U/L (15-37); Blood Urea Nitrogen 51 mg/dL (7-18); Calcium 7.9 mg/dL (8.5-10.1); Carbon Dioxide 19.1 meq/L (21.0-32.0); Chloride 108 meq/L (98-107); Glomerular Filtration Rate 15 mL/min (>89); Glucose,Random 165 mg/dL (74-106); Magnesium 1.7 mg/dL (1.5-2.5); Phosphorus 3.4 mg/dL (2.5-4.9); Potassium 4.2 meq/L (3.5-5.1); Sodium 138 meq/L (136-145)
[2018-05-17 06:25] LABS: Alkaline Phosphatase 76 U/L (45-117); Total Protein 6.3 g/dL (6.4-8.2)
--- NOTE | 2018-05-17 08:58 | P.PNCC ---
Subjective Subjective Remarks/Hospital Course: This is a 78-year-old male. Date of admission 05/16/2018. Past medical history includes coronary disease status post CABG x4, peripheral vascular disease, hypertension, hyperlipidemia gout and chronic warfarin use. On Sunday, patient had a fall and had an abrasion to the anterior tibial aspect of his right lower extremity. He went to an urgent care and received trimethoprim/sulfamethoxazole 1 tablet twice daily for treatment. He did not take the steroids because overnight he had some abdominal pain/nausea and vomiting which has since resolved. This is consistent diarrhea. He took his first dose of the medicine today within 40 minutes started to develop a rash is itchy and involves his bilateral upper and lower extreme is. Patient emergently called 911 who gave him diphenhydramine, ondansetron and intravenous fluids. Was evaluated to [facility] and received diphenhydramine and famotidine and 1 dose of steroids. Patient became hypotensive and was started on norepinephrine drip intravenously. CT emesis post revealed sigmoid diverticulitis. He has been given vancomycin, aztreonam and metronidazole. Due to multiple creatinine is currently 2.9. Due to his multiple comorbid patient was transferred to the [facility] for further evaluation. He is currently been weaned off his vasopressors. We are asked to admit the patient. Subjective 05/17: Afebrile. Currently resting in bed in no acute distress. Saturations 94 % on 2 L nasal cannula. Grossly advance diet. As a dental pain. Creatinine increased with 3-4. Objective Vital Signs / I&O: Vital Signs 05/16/18 09:55 05/16/18 10:00 05/16/18 10:15 Temperature 100.1 F H Pulse Rate 115 H 114 H 118 H Respiratory Rate 20 18 Blood Pressure 114/63 105/50 L Pulse Oximetry 92 L 92 L 91 L 05/16/18 10:30 05/16/18 10:45 05/16/18 11:00 Temperature Pulse Rate 112 H 116 H 114 H Respiratory Rate 16 18 16 Blood Pressure 97/58 L 75/53 L 80/53 L Pulse Oximetry 92 L 92 L 93 L 05/16/18 11:20 05/16/18 11:37 05/16/18 11:52 Temperature Pulse Rate 114 H 108 H 112 H Respiratory Rate 16 18 18 Blood Pressure 85/56 L 69/54 L 78/55 L Pulse Oximetry 93 L 95 93 L 05/16/18 12:07 05/16/18 12:22 05/16/18 12:56 Temperature 99.8 F H Pulse Rate 108 H 106 H 108 H Respiratory Rate 16 16 18 Blood Pressure 87/51 L 83/50 L 81/50 L Pulse Oximetry 94 L 94 L 94 L 05/16/18 13:15 05/16/18 13:25 05/16/18 13:35 Temperature Pulse Rate 106 H 106 H 106 H Respiratory Rate 16 16 16 Blood Pressure 90/54 L 94/54 L 103/61 Pulse Oximetry 95 94 L 94 L 05/16/18 13:47 05/16/18 13:57 05/16/18 14:07 Temperature Pulse Rate 104 H 106 H 104 H Respiratory Rate 16 16 16 Blood Pressure 88/57 L 85/61 L 106/62 Pulse Oximetry 94 L 95 93 L 05/16/18 14:17 05/16/18 14:27 05/16/18 14:45 Temperature Pulse Rate 104 H 102 H 104 H Respiratory Rate 16 18 16 Blood Pressure 93/57 L 114/56 L 99/58 L Pulse Oximetry 94 L 94 L 05/16/18 15:00 05/16/18 15:12 05/16/18 15:30 Temperature Pulse Rate 104 H 106 H 103 H Respiratory Rate 16 18 16 Blood Pressure 101/58 L 104/85 110/62 Pulse Oximetry 95 97 93 L 05/16/18 15:43 05/16/18 15:58 05/16/18 16:05 Temperature Pulse Rate 102 H 104 H 98 H Respiratory Rate 18 16 18 Blood Pressure 104/64 106/66 102/70 Pulse Oximetry 94 L 95 94 L 05/16/18 16:30 05/16/18 16:35 05/16/18 16:40 Temperature 98.4 F Pulse Rate 104 H 103 H 104 H Respiratory Rate 28 H 23 26 H Blood Pressure 112/64 106/60 108/60 Pulse Oximetry 94 L 94 L 93 L 05/16/18 16:45 05/16/18 16:50 05/16/18 16:55 Temperature Pulse Rate 102 H 102 H 83 Respiratory Rate 25 H 28 H 33 H Blood Pressure 111/60 105/58 L 137/80 Pulse Oximetry 93 L 92 L 91 L 05/16/18 17:00 05/16/18 17:15 05/16/18 17:30 Temperature Pulse Rate 102 H 101 H 98 H Respiratory Rate 28 H 37 H 21 Blood Pressure 112/71 108/65 104/57 L Pulse Oximetry 95 91 L 93 L 05/16/18 17:45 05/16/18 18:00 05/16/18 18:15 Temperature Pulse Rate 101 H 105 H 101 H Respiratory Rate 31 H 36 H 32 H Blood Pressure 116/65 104/58 L 108/61 Pulse Oximetry 93 L 91 L 93 L 05/16/18 18:30 05/16/18 18:45 05/16/18 19:00 Temperature Pulse Rate 97 H 98 H 96 H Respiratory Rate 23 28 H 32 H Blood Pressure 105/59 L 98/57 L 98/54 L Pulse Oximetry 94 L 93 L 92 L 05/16/18 19:15 05/16/18 19:30 05/16/18 19:45 Temperature Pulse Rate 102 H 101 H 100 H Respiratory Rate 22 19 21 Blood Pressure 111/61 107/61 109/64 Pulse Oximetry 94 L 92 L 94 L 05/16/18 20:00 05/16/18 20:15 05/16/18 20:30 Temperature 97.7 F Pulse Rate 100 H 103 H 105 H Respiratory Rate 23 15 26 H Blood Pressure 108/63 107/59 L 111/63 Pulse Oximetry 93 L 92 L 91 L 05/16/18 20:46 05/16/18 21:00 05/16/18 22:00 Temperature Pulse Rate 100 H 99 H 104 H Respiratory Rate 20 17 Blood Pressure 104/60 98/58 L Pulse Oximetry 92 L 92 L 05/16/18 22:45 05/16/18 23:00 05/16/18 23:15 Temperature Pulse Rate 105 H 101 H 100 H Respiratory Rate 14 15 13 Blood Pressure 96/59 L 102/63 106/62 Pulse Oximetry 94 L 93 L 91 L 05/16/18 23:30 05/16/18 23:45 05/17/18 00:00 Temperature 98 F Pulse Rate 100 H 100 H 101 H Respiratory Rate 23 25 H 23 Blood Pressure 127/79 136/77 121/70 Pulse Oximetry 93 L 93 L 93 L 05/17/18 00:15 05/17/18 00:30 05/17/18 00:45 Temperature Pulse Rate 99 H 99 H 97 H Respiratory Rate 24 22 22 Blood Pressure 119/69 105/61 109/63 Pulse Oximetry 93 L 93 L 92 L 05/17/18 01:00 05/17/18 01:15 05/17/18 01:30 Temperature Pulse Rate 96 H 96 H 93 H Respiratory Rate 22 21 15 Blood Pressure 115/65 122/71 117/71 Pulse Oximetry 92 L 96 98 05/17/18 01:45 05/17/18 02:00 05/17/18 02:15 Temperature Pulse Rate 97 H 94 H 94 H Respiratory Rate 25 H 26 H 16 Blood Pressure 110/64 113/68 121/69 Pulse Oximetry 92 L 92 L 92 L 05/17/18 02:30 05/17/18 02:45 05/17/18 03:00 Temperature Pulse Rate 98 H 101 H 96 H Respiratory Rate 15 31 H 20 Blood Pressure 125/73 136/77 126/74 Pulse Oximetry 95 94 L 94 L 05/17/18 03:15 05/17/18 03:30 05/17/18 03:45 Temperature Pulse Rate 98 H 100 H 101 H Respiratory Rate 16 22 21 Blood Pressure 129/72 132/76 133/78 Pulse Oximetry 93 L 94 L 94 L 05/17/18 04:00 05/17/18 04:15 05/17/18 04:30 Temperature 98.1 F Pulse Rate 108 H 111 H 108 H Respiratory Rate 21 30 H 20 Blood Pressure 134/79 130/77 139/79 Pulse Oximetry 93 L 93 L 93 L 05/17/18 04:44 05/17/18 04:45 05/17/18 05:00 Temperature Pulse Rate 100 H 98 H 100 H Respiratory Rate 20 16 15 Blood Pressure 140/83 116/69 Pulse Oximetry 92 L 92 L 93 L 05/17/18 05:16 05/17/18 05:29 05/17/18 05:30 Temperature Pulse Rate 106 H 108 H 106 H Respiratory Rate 52 H 28 H 25 H Blood Pressure 140/71 131/70 Pulse Oximetry 90 L 94 L 94 L 05/17/18 05:45 05/17/18 06:00 05/17/18 06:01 Temperature Pulse Rate 103 H 102 H 104 H Respiratory Rate 37 H 50 H 59 H Blood Pressure 134/70 143/81 H Pulse Oximetry 93 L 93 L 92 L 05/17/18 06:15 05/17/18 06:30 05/17/18 06:45 Temperature Pulse Rate 107 H 100 H 99 H Respiratory Rate 33 H 38 H 21 Blood Pressure 126/78 133/76 135/78 Pulse Oximetry 93 L 94 L 94 L Intake & Output 05/16/18 05/17/18 05/17/18 18:59 06:59 18:59 Intake Total 2790 / 2790 1866 / 1866 100 / 100 Output Total 5 / 5 250 / 250 Balance 2785 / 2785 1616 / 1616 100 / 100 Weight 106 kg 107.5 kg Intake: IV 1550 / 1550 1466 / 1466 100 / 100 NS Inj 1,000 ML @ 84 mls/hr IV. 250 / 250 750 / 750 CONT .[id number] ROSINA Rx#: [id number] Azactam Inj 1,000 MG In NS Inj 100 / 100 100 ML @ 200 mls/hr IV.SIG Q12H ROSINA Rx#:[id number] Azactam Inj 2 GM In NS Inj 100 100 / 100 ML @ 200 mls/hr IV.SIG ONCE ONE Rx#:[id number] NS Inj 500 ML @ 1000 mls/hr IV. 1000 / 1000 SIG BOLUS ROSINA Rx#:[id number] Flagyl 500 MG Inj 100 ML @ 100 200 / 200 100 / 100 100 / 100 mls/hr IV.SIG Q6H ROSINA Rx#: [id number] Oral 240 / 240 400 / 400 Other 1000 / 1000 Output: Urine 5 / 5 250 / 250 Other: Other Intake Source Saline Solution Weight On Admission 106 kg Result Diagrams: 05/17/18 05:35 05/17/18 05:35 Other Results: Microbiology 05/16/18 13:38 Nasal Wash Influenza Types A,B Antigen - Final Negative for FLU A and B antigen Infection due to influenza A or B cannot be ruled out since the antigen present in the sample may be below the detection limit of the test. Imaging: Venous Doppler Study 05/16/18 00:00 CONCLUSION: 1. The study is negative for bilateral lower extremity deep venous thrombosis. 2. Probable hematomas within the popliteal fossa bilaterally likely postsurgical. 3. 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 Chest X-Ray 05/16/18 10:17 CONCLUSION: The lungs are clear. Abdomen/Pelvis CT 05/16/18 11:55 CONCLUSION: Findings of diverticulitis without abscess at the junction of descending and sigmoid colon Bilateral iliac artery stents as above. 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 CT angiography could be performed to further evaluate this if clinically indicated Abdomen/Bladder Ultrasound 05/16/18 12:11 CONCLUSION: 1. Echogenic kidneys characteristic of medical renal disease. Right renal cysts. No hydronephrosis. Thickened bladder wall. Objective Remarks: GENERAL: 78-year-old male currently resting in bed in no acute distress on 2 L nasal cannula SKIN: Warm and dry. HEAD: Atraumatic. Normocephalic. EYES: Pupils equal and round. No scleral icterus. No injection or drainage. ENT: No nasal bleeding or discharge. Mucous membranes pink and moist. NECK: Trachea midline. No JVD. CARDIOVASCULAR: Cardiac, RR. S1, S2. No S4. RESPIRATORY: No accessory muscle use. Clear to auscultation. Breath sounds equal bilaterally. GASTROINTESTINAL: Abdomen soft, non-tender, obese. Hypoactive bowel sounds appreciated. MUSCULOSKELETAL: Extremities without clubbing, cyanosis, or edema. Cellulitis located in the anterior tibial region of the right lower extremity demarcated NEUROLOGICAL: Awake and alert. No obvious cranial nerve deficits. Motor grossly within normal limits. Five out of 5 muscle strength in the arms and legs. Normal speech. PSYCHIATRIC: Appropriate mood and affect; insight and judgment normal. Assessment and Plan - Problem List (1) Drug reaction Code(s): T50.905A - Adverse effect of unspecified drugs, medicaments and biological substances, initial encounter Status: Acute (2) Acute kidney injury Code(s): N17.9 - Acute kidney failure, unspecified Status: Acute (3) Peripheral vascular disease Code(s): I73.9 - Peripheral vascular disease, unspecified Status: Chronic (4) Gout Code(s): M10.9 - Gout, unspecified Status: Chronic (5) Severe sepsis Code(s): A41.9 - Sepsis, unspecified organism; R65.20 - Severe sepsis without septic shock Status: Acute (6) Essential hypertension Code(s): I10 - Essential (primary) hypertension Status: Chronic (7) Hyperlipidemia Code(s): E78.5 - Hyperlipidemia, unspecified Status: Chronic (8) Chronic anticoagulation Code(s): Z79.01 - computer terminal operator (current) use of anticoagulants Status: Chronic (9) Atrial fibrillation Code(s): I48.91 - Unspecified atrial fibrillation Status: Chronic (10) Abdominal aortic aneurysm Code(s): I71.4 - Abdominal aortic aneurysm, without rupture Status: Chronic (11) Diverticulitis large intestine Code(s): K57.32 - Diverticulitis of large intestine without perforation or abscess without bleeding Status: Acute (12) Renal cyst, right Code(s): N28.1 - Cyst of kidney, acquired Status: Chronic (13) Leukocytosis Code(s): D72.829 - Elevated white blood cell count, unspecified Status: Acute (14) Normocytic anemia Code(s): D64.9 - Anemia, unspecified Status: Acute (15) Thrombocytopenia Code(s): D69.6 - Thrombocytopenia, unspecified Status: Acute (16) Occlusion of left saphenous vein Code(s): I82.812 - Embolism and thrombosis of superficial veins of left lower extremity Status: Acute (17) Cellulitis Code(s): L03.90 - Cellulitis, unspecified Status: Acute - Assessment and Plan Plan: Neuro/Psych: Acetaminophen 650 mg p.o. every 6 hours as needed fever Noted allergies to hydrocodone and morphine sulfate CV: Severe sepsis with lactic acidosis resolving Atrial fibrillation with rapid ventricular response Essential hypertension Hyperlipidemia Coronary disease status post CABG x4 Peripheral vascular disease Bilateral greater saphenous vein removal Bilateral iliac stent placement Elevated troponin 0 08 Holding lisinopril/hydrochlorthiazide 20/25 1 tablet twice daily in light of acute injury/vasopressor usage Holding metoprolol tartrate 50 mg twice daily in light of hypotension Holding simvastatin 40 mg daily. Resume if clinically indicated for hyperlipidemia Continue clopidogrel 75 mg daily for peripheral vascular disease. Resume cilostazol 100 mg twice daily. Lower extremity Doppler revealed left SFA occlusion. Popliteal fossa masses bilaterally. Bocanegra's cyst versus hematomas Serial lactates until cleared. Currently 1.5 Echocardiogram ordered. Serial troponins will downward trend Resp: Nasal cannula to maintain saturations greater than equal to 90% Incentive spirometry while awake As needed albuterol aerosols every 2 hours. Dyspnea Chest x-ray revealed no acute cardiopulmonary findings GI: Diverticulitis CT abdomen/pelvis revealed sigmoid/descending diverticulitis. Bilateral iliac stents. Currently on aztreonam and metronidazole. And vancomycin Advance diet as tolerated renal Famotidine for GI prophylaxis Docusate serum/senna 1 tablet twice daily for bowel regimen : Straight catheterization as needed. No indication for Lala catheter Endo: Hyperglycemia Sliding scale insulin Accu-Cheks to maintain euglycemia Gout Holding allopurinol 300 mg 3 times weekly. Resume when clinically indicated Renal: Acute kidney injury Right renal cyst No signs of hydronephrosis on renal ultrasound. Right renal cyst. Echogenic medical renal disease Positive urine eosinophils, Avoid nephrotoxic medication Monitor urine output Accurate I's and O's Heme: Leukocytosis Normocytic anemia Thrombocytopenia Chronic warfarin use Monitor CBC daily. Follow trends. No indication for transfusion of blood products at this time Currently warfarin 2 mg daily. Continue. Daily INR currently 1.9 ID: Right lower extremity cellulitis Sigmoid diverticulitis Currently on vancomycin, aztreonam and metronidazole day #2 Blood cultures x2 pending. Influenza a and B- MSK: Elevated BMI PT evaluate and treat Weight loss encouraged FEN: Currently on 0.9% NaCl at 84 cc an hour Replace electrolytes as clinically indicated Access -Utilize peripheral IV. Central line if indicated Prophylaxis -GI -pantoprazole -DVT -scd/warfarin Level 2 admission. Patient stable from critical care medicine standpoint. Assign care to hospitalist in a.m. 05/18. Code Status: Full code Discussed Condition With: Patient. Significant other. IMC RN. Care plan discussed and all questions answered. (1) Drug reaction Qualifiers: Encounter type: sequela Qualified Code(s): T50.905S - Adverse effect of unspecified drugs, medicaments and biological substances, sequela (4) Gout Qualifiers: Gout site: unspecified site Gout etiology: unspecified cause Chronicity: unspecified Qualified Code(s): M10.9 - Gout, unspecified (7) Hyperlipidemia Qualifiers: Hyperlipidemia type: unspecified Qualified Code(s): E78.5 - Hyperlipidemia, unspecified (9) Atrial fibrillation Qualifiers: Atrial fibrillation type: unspecified Qualified Code(s): I48.91 - Unspecified atrial fibrillation (10) Abdominal aortic aneurysm Qualifiers: Presence of rupture: without rupture Qualified Code(s): I71.4 - Abdominal aortic aneurysm, without rupture (11) Diverticulitis large intestine Qualifiers: Diverticulitis complication: unspecified complication status (13) Leukocytosis Qualifiers: Leukocytosis type: unspecified Qualified Code(s): D72.829 - Elevated white blood cell count, unspecified (17) Cellulitis Qualifiers: Site of cellulitis: extremity Site of cellulitis of extremity: lower extremity Laterality: right Qualified Code(s): L03.115 - Cellulitis of right lower limb
[2018-05-17] MEDS: Famotidine PF Inj 20 MG/2 ML Vial IV.PUSH SCH ×2 (09:07→20:26)
[2018-05-17] MEDS: Senna/Docusate Sodium 8.6/50 MG Tablet PO SCH ×2 (09:27→20:26)
--- NOTE | 2018-05-17 12:25 | P.CONNP ---
History of Present Illness Service: Nephrology Consult date: 05/17/18 Requesting Physician: Emeterio Guzman Reason for Consult: Acute renal failure on chronic kidney disease Primary Care Provider: UNKNOWN Chief Complaint: Weakness/rash History of Present Illness: Patient is a 78-year-old male with history of atrial fibrillation, chronic kidney disease, status post CABG who stated that he tripped over and injured his right hand, he went to urgent care and was given Bactrim which he took and had severe reaction, he was itching and he was given Benadryl IV fluids and transferred to emergency, initial creatinine 2.9 fractional excretion of sodium was less than 1, he was given IV fluids, patient urine output remains low and today his creatinine is 3.9, he stated now his urine output has picked up and he has passed 400 cc of urine. He does have history of congestive heart failure and he is getting normal saline at 84 cc an hour. Review of Systems Constitutional: Reports body ache(s), Reports fatigue Eyes: Denies blind spots, Denies blurry vision, Denies bulging eyes, Denies change in vision, Denies double vision, Denies discharge, Denies dry eyes, Denies floaters, Denies irritation, Denies itchy eyes, Denies loss of vision, Denies pain, Denies requires corrective lenses, Denies sensitivity to light, Denies other Ears, Nose, Mouth, and Throat: Denies abnormal hearing, Denies bleeding gums, Denies bad breath, Denies change in voice, Denies dental pain, Denies difficulty swallowing, Denies dizziness, Denies dry mouth, Denies ear discharge , Denies ear pain, Denies facial pain, Denies headache(s), Denies hearing loss, Denies hoarseness, Denies lip swelling, Denies nosebleed, Denies mouth lesions, Denies mouth pain, Denies nasal congestion, Denies nasal discharge, Denies nasal obstruction, Denies nasal trauma, Denies neck lump, Denies neck pain, Denies nose pain, Denies pain with swallowing, Denies poor balance, Denies post nasal drip, Denies ringing in the ears, Denies sinus pain, Denies sinus pressure , Denies sore throat, Denies throat swelling, Denies tongue swelling, Denies other Cardiovascular: Denies chest pain, Denies chest pain at rest, Denies chest pain with activity, Denies excessive sweating, Denies fainting, Denies fast heart rate, Denies foot swelling, Denies generalized swelling, Denies irregular heart rhythm, Denies leg pain with activity, Denies leg sores, Denies leg swelling, Denies lightheadedness, Denies radiating jaw, neck or arm pain, Denies rapid, pounding, or irregular heartbeat, Denies shortness of breath, Denies shortness of breath with activity, Denies shortness of breath when lying down, Denies shortness of breath causing sudden awakening, Denies slow heart rate, Denies other Respiratory: Denies change in phlegm color, Denies chest congestion, Denies cough, Denies coughing up blood, Denies excessive phlegm production, Denies pain on inspiration, Denies pain with cough, Denies shortness of breath, Denies shortness of breath with activity, Denies snoring, Denies stridor, Denies wheezing, Denies other Gastrointestinal: Reports loose stools, Reports nausea Genitourinary: Reports urinary frequency, Denies blood in semen, Denies blood in urine, Denies decreased urination, Denies difficulty urinating, Denies difficulty with ejaculations, Denies erectile dysfunction, Denies genital lesions, Denies genital pain, Denies painful urination, Denies side pain, Denies frequent nighttime urination, Denies painful ejaculations, Denies penile discharge, Denies scrotal swelling, Denies testicle lump, Denies testicle pain, Denies urinary hesitancy, Denies urinary incontinence, Denies urinary urgency, Denies other Musculoskeletal: Reports body aches Skin/Breast: Reports lesions Neurologic: Denies abnormal hearing, Denies abnormal movements, Denies abnormal speech, Denies abnormal walking, Denies behavioral changes, Denies burning sensations, Denies confusion, Denies dizziness, Denies fainting, Denies frequent falls, Denies headache(s), Denies lack of coordination, Denies localized weakness, Denies loss of vision, Denies memory loss, Denies numbness, Denies other visual disturbances, Denies radiating pain, Denies restless legs, Denies convulsions, Denies seizure-like activity, Denies sensory deficit, Denies tingling, Denies tingling/numbness/burning sensations, Denies tremor(s), Denies unsteadiness, Denies weakness, Denies other Psychiatric: Denies abnormal sleep pattern, Denies anxiety, Denies behavioral changes, Denies change in appetite, Denies change in sex drive, Denies confusion , Denies depression, Denies difficulty concentrating, Denies hearing things others do not hear, Denies hopelessness, Denies irritability, Denies lack of enjoyment, Denies memory loss, Denies mood swings, Denies panic attacks, Denies paranoia, Denies seeing things others do not see, Denies sensing things others do not sense, Denies tactile hallucinations, Denies thoughts of hurting/killing others, Denies thoughts of hurting/killing yourself, Denies other Endocrine: Denies cold intolerance, Denies excessive sweating, Denies flushing, Denies heat intolerance, Denies increased hunger, Denies increased thirst, Denies increased urination, Denies rapid, pounding, or irregular heartbeat, Denies other Hematologic/Lymphatic: Denies easy bleeding, Denies easy bruising, Denies enlarged lymph nodes, Denies other Allergic/Immunologic: Denies GI upset with certain foods, Denies hives, Denies itchy eyes, Denies lip swelling, Denies seasonal runny nose, Denies throat swelling, Denies tongue swelling, Denies wheezing, Denies other PMFSH - History History Provided By: Patient - Medical History Medical History: Medical History (Last Reviewed 05/17/18 @ 12:19 by Ryland Orosco MD) A-fib Aneurysm Encounter for imaging of bilateral greater saphenous veins Gout High cholesterol Hypertension Peripheral vascular disease - Surgical History Surgical History: Surgical History (Last Reviewed 05/17/18 @ 12:19 by Ryland Orosco MD) Hx of CABG Hx of inguinal hernia surgery Status post insertion of iliac artery stent - Family History Family History: Family History (Last Reviewed 05/17/18 @ 12:19 by Ryland Orosco MD) Other Family history of stroke or transient ischemic attack in father - Tobacco History Second Hand Smoke Exposure: No Tobacco Use In Past 30 Days: No Smoking Status: Former smoker Tobacco Type: Cigarettes - Alcohol History How Often Do You Have a Drink Containing Alcohol: Never - Substance Use History Substance History: No History of Abuse - Travel History Recent Travel in the [facility] Within the Last 8 Weeks: Yes Recent Travel Out of the Country Within the Last 8 Weeks: No - Immunization History Tetanus Immunization: <5 Years Hx Influenza Vaccine This Season: Yes Medications and Allergies Active Medications: Active Medications Acetaminophen (Tylenol) 650 mg PO Q6H PRN PRN Reason: PAIN 1-10 AND/OR FEVER >101F Al Hydroxide/Mg Hydroxide (Milk Of Magnranjan Liq) 30 ml PO Q12H PRN PRN Reason: Mild Constipation Albuterol (Albuterol Neb (Prn)) 2.5 mg NEB Q2HR NEB PRN PRN Reason: SHORTNESS OF BREATH/WHEEZING Bisacodyl (Dulcolax Supp) 10 mg RECTAL DAILY PRN PRN Reason: SEVERE CONSITIPATION Chlorhexidine Gluconate (Chlorhexidine 2% Cloth) 3 pack TOPICAL DAILY@0400 [facility] Stop: 05/22/18 03:59 Last Admin: 05/17/18 04:59 Dose: 3 pack Chlorhexidine Gluconate (Chlorhexidine 2% Cloth) 3 pack TOPICAL DAILY@0400 PRN PRN Reason: Extra cloth needed Stop: 05/22/18 03:59 Cilostazol (Pletal) 100 mg PO BID [facility] Last Admin: 05/17/18 09:27 Dose: 100 mg Clopidogrel Bisulfate (Plavix) 75 mg PO DAILY [facility] Last Admin: 05/17/18 09:07 Dose: 75 mg Dextrose (D50w Vial) 50 ml IV.PUSH UNSCH PRN PRN Reason: PER HYPOGLYCEMIA PROTOCOL Diphenhydramine HCl (Benadryl Inj) 25 mg IV.PUSH Q6H [facility] Stop: 05/18/18 08:01 Last Admin: 05/17/18 09:05 Dose: 25 mg Famotidine (Pepcid Pf Inj) 10 mg IV.PUSH Q12HR [facility] Last Admin: 05/17/18 09:07 Dose: 10 mg Glucagon (Glucagon Inj) 1 mg OTHER PRN PRN PRN Reason: for Hypoglycemia Protocol Heparin Sodium (Porcine) (Heparin Inj) 5,000 units SQ Q12H [facility] Last Admin: 05/17/18 02:39 Dose: 5,000 units Sodium Chloride (Ns Inj) 1,000 mls @ 84 mls/hr IV.CONT .[id number] [facility] Last Admin: 05/16/18 23:31 Dose: 84 mls/hr Aztreonam 1,000 mg/ Sodium (Chloride) 100 mls @ 200 mls/hr IV.SIG Q12H [facility] Last Infusion: 05/17/18 03:10 Dose: Infused Metronidazole/Sodium Chloride (Flagyl 500 Mg Inj) 100 mls @ 100 mls/hr IV.SIG Q6H [facility] Last Infusion: 05/17/18 07:03 Dose: Infused Norepinephrine Bitartrate 16 (mg/ Sodium Chloride) 250 mls @ 1.87 mls/hr IV.CONT TITRATE PRN; Protocol PRN Reason: See Protocol Insulin Aspart (Novolog Insulin Correctional Sugar Inj) 0 unit SQ Q6HR [facility]; Protocol Last Admin: 05/17/18 07:02 Dose: Not Given Lactulose (Lactulose Liq) 30 ml PO DAILY PRN PRN Reason: SEVERE CONSITIPATION Ondansetron HCl (Zofran Inj) 4 mg IV.PUSH Q6H PRN PRN Reason: NAUSEA OR VOMITING Pharmacy Profile Note (Vancomycin Consult Pharmacy) 1 each OTHER UNSCH PRN PRN Reason: Pharmacy to dose Pharmacy Profile Note (Coumadin Consult Pharmacy) 1 each OTHER UNSCH PRN PRN Reason: PHARMACY DOCUMENTATION Senna/Docusate Sodium (Eula-Colace) 1 tab PO BID [facility] Last Admin: 05/17/18 09:27 Dose: Not Given Sennosides (Senokot) 17.2 mg PO Q12H PRN PRN Reason: Moderate Constipation Sodium Chloride (Ns Flush) 2 ml IV.FLUSH BID [facility] Last Admin: 05/17/18 09:06 Dose: 2 ml Sodium Chloride (Ns Flush) 2 ml IV.FLUSH PRN PRN PRN Reason: FLUSH AFTER USING IV ACCESS Terbutaline Sulfate (Brethine Inj) 1 mg SQ UNSCH PRN PRN Reason: For Extravasation Warfarin Sodium (Coumadin) 2 mg PO DAILY@1600 [facility] Last Admin: 05/16/18 17:45 Dose: 2 mg Allergies Allergy/AdvReac Type Severity Reaction Status Date / Time hydrocodone Allergy Severe Rash Verified 05/16/18 10:36 morphine Allergy Severe Rash Verified 05/16/18 10:36 Penicillins Allergy Severe Rash Verified 05/16/18 10:36 sulfamethoxazole Allergy Severe Rash Verified 05/16/18 10:36 [From ] trimethoprim [From ] Allergy Severe Rash Verified 05/16/18 10:36 Home Medications Medication Instructions Recorded Confirmed Type allopurinol 300 mg PO 3XW 05/16/18 05/16/18 History cilostazol 100 mg PO BID 05/16/18 05/16/18 History clopidogrel 75 mg PO DAILY 05/16/18 05/16/18 History lisinopril-hydrochlorothiazide 1 tab PO BID 05/16/18 05/16/18 History metoprolol tartrate 50 mg PO BID 05/16/18 05/16/18 History nitroglycerin 0.4 mg SUBLINGUAL Q5-15M PRN 05/16/18 05/16/18 History simvastatin 40 mg PO HS 05/16/18 05/16/18 History warfarin 2 mg PO DAILY 05/16/18 05/16/18 History Exam Vital signs: Vital Signs 05/16/18 12:22 05/16/18 12:56 05/16/18 13:15 Temperature 99.8 F H Pulse Rate 106 H 108 H 106 H Respiratory Rate 16 18 16 Blood Pressure 83/50 L 81/50 L 90/54 L Pulse Oximetry 94 L 94 L 95 05/16/18 13:25 05/16/18 13:35 05/16/18 13:47 Temperature Pulse Rate 106 H 106 H 104 H Respiratory Rate 16 16 16 Blood Pressure 94/54 L 103/61 88/57 L Pulse Oximetry 94 L 94 L 94 L 05/16/18 13:57 05/16/18 14:07 05/16/18 14:17 Temperature Pulse Rate 106 H 104 H 104 H Respiratory Rate 16 16 16 Blood Pressure 85/61 L 106/62 93/57 L Pulse Oximetry 95 93 L 94 L 05/16/18 14:27 05/16/18 14:45 05/16/18 15:00 Temperature Pulse Rate 102 H 104 H 104 H Respiratory Rate 18 16 16 Blood Pressure 114/56 L 99/58 L 101/58 L Pulse Oximetry 94 L 95 05/16/18 15:12 05/16/18 15:30 05/16/18 15:43 Temperature Pulse Rate 106 H 103 H 102 H Respiratory Rate 18 16 18 Blood Pressure 104/85 110/62 104/64 Pulse Oximetry 97 93 L 94 L 05/16/18 15:58 05/16/18 16:05 05/16/18 16:30 Temperature 98.4 F Pulse Rate 104 H 98 H 104 H Respiratory Rate 16 18 28 H Blood Pressure 106/66 102/70 112/64 Pulse Oximetry 95 94 L 94 L 05/16/18 16:35 05/16/18 16:40 05/16/18 16:45 Temperature Pulse Rate 103 H 104 H 102 H Respiratory Rate 23 26 H 25 H Blood Pressure 106/60 108/60 111/60 Pulse Oximetry 94 L 93 L 93 L 05/16/18 16:50 05/16/18 16:55 05/16/18 17:00 Temperature Pulse Rate 102 H 83 102 H Respiratory Rate 28 H 33 H 28 H Blood Pressure 105/58 L 137/80 112/71 Pulse Oximetry 92 L 91 L 95 05/16/18 17:15 05/16/18 17:30 05/16/18 17:45 Temperature Pulse Rate 101 H 98 H 101 H Respiratory Rate 37 H 21 31 H Blood Pressure 108/65 104/57 L 116/65 Pulse Oximetry 91 L 93 L 93 L 05/16/18 18:00 05/16/18 18:15 05/16/18 18:30 Temperature Pulse Rate 105 H 101 H 97 H Respiratory Rate 36 H 32 H 23 Blood Pressure 104/58 L 108/61 105/59 L Pulse Oximetry 91 L 93 L 94 L 05/16/18 18:45 05/16/18 19:00 05/16/18 19:15 Temperature Pulse Rate 98 H 96 H 102 H Respiratory Rate 28 H 32 H 22 Blood Pressure 98/57 L 98/54 L 111/61 Pulse Oximetry 93 L 92 L 94 L 05/16/18 19:30 05/16/18 19:45 05/16/18 20:00 Temperature 97.7 F Pulse Rate 101 H 100 H 100 H Respiratory Rate 19 21 23 Blood Pressure 107/61 109/64 108/63 Pulse Oximetry 92 L 94 L 93 L 05/16/18 20:15 05/16/18 20:30 05/16/18 20:46 Temperature Pulse Rate 103 H 105 H 100 H Respiratory Rate 15 26 H 20 Blood Pressure 107/59 L 111/63 104/60 Pulse Oximetry 92 L 91 L 92 L 05/16/18 21:00 05/16/18 22:00 05/16/18 22:45 Temperature Pulse Rate 99 H 104 H 105 H Respiratory Rate 17 14 Blood Pressure 98/58 L 96/59 L Pulse Oximetry 92 L 94 L 05/16/18 23:00 05/16/18 23:15 05/16/18 23:30 Temperature Pulse Rate 101 H 100 H 100 H Respiratory Rate 15 13 23 Blood Pressure 102/63 106/62 127/79 Pulse Oximetry 93 L 91 L 93 L 05/16/18 23:45 05/17/18 00:00 05/17/18 00:15 Temperature 98 F Pulse Rate 100 H 101 H 99 H Respiratory Rate 25 H 23 24 Blood Pressure 136/77 121/70 119/69 Pulse Oximetry 93 L 93 L 93 L 05/17/18 00:30 05/17/18 00:45 05/17/18 01:00 Temperature Pulse Rate 99 H 97 H 96 H Respiratory Rate 22 22 22 Blood Pressure 105/61 109/63 115/65 Pulse Oximetry 93 L 92 L 92 L 05/17/18 01:15 05/17/18 01:30 05/17/18 01:45 Temperature Pulse Rate 96 H 93 H 97 H Respiratory Rate 21 15 25 H Blood Pressure 122/71 117/71 110/64 Pulse Oximetry 96 98 92 L 05/17/18 02:00 05/17/18 02:15 05/17/18 02:30 Temperature Pulse Rate 94 H 94 H 98 H Respiratory Rate 26 H 16 15 Blood Pressure 113/68 121/69 125/73 Pulse Oximetry 92 L 92 L 95 05/17/18 02:45 05/17/18 03:00 05/17/18 03:15 Temperature Pulse Rate 101 H 96 H 98 H Respiratory Rate 31 H 20 16 Blood Pressure 136/77 126/74 129/72 Pulse Oximetry 94 L 94 L 93 L 05/17/18 03:30 05/17/18 03:45 05/17/18 04:00 Temperature 98.1 F Pulse Rate 100 H 101 H 108 H Respiratory Rate 22 21 21 Blood Pressure 132/76 133/78 134/79 Pulse Oximetry 94 L 94 L 93 L 05/17/18 04:15 05/17/18 04:30 05/17/18 04:44 Temperature Pulse Rate 111 H 108 H 100 H Respiratory Rate 30 H 20 20 Blood Pressure 130/77 139/79 Pulse Oximetry 93 L 93 L 92 L 05/17/18 04:45 05/17/18 05:00 05/17/18 05:16 Temperature Pulse Rate 98 H 100 H 106 H Respiratory Rate 16 15 52 H Blood Pressure 140/83 116/69 140/71 Pulse Oximetry 92 L 93 L 90 L 05/17/18 05:29 05/17/18 05:30 05/17/18 05:45 Temperature Pulse Rate 108 H 106 H 103 H Respiratory Rate 28 H 25 H 37 H Blood Pressure 131/70 134/70 Pulse Oximetry 94 L 94 L 93 L 05/17/18 06:00 05/17/18 06:01 05/17/18 06:15 Temperature Pulse Rate 102 H 104 H 107 H Respiratory Rate 50 H 59 H 33 H Blood Pressure 143/81 H 126/78 Pulse Oximetry 93 L 92 L 93 L 05/17/18 06:30 05/17/18 06:45 Temperature Pulse Rate 100 H 99 H Respiratory Rate 38 H 21 Blood Pressure 133/76 135/78 Pulse Oximetry 94 L 94 L Intake & Output 05/16/18 05/17/18 05/17/18 18:59 06:59 18:59 Intake Total 2790 / 2790 1866 / 1866 100 / 100 Output Total 5 / 5 250 / 250 Balance 2785 / 2785 1616 / 1616 100 / 100 Weight 106 kg 107.5 kg Intake: IV 1550 / 1550 1466 / 1466 100 / 100 NS Inj 1,000 ML @ 84 mls/hr IV. 250 / 250 750 / 750 CONT .[id number] [facility] Rx#: [id number] Azactam Inj 1,000 MG In NS Inj 100 / 100 100 ML @ 200 mls/hr IV.SIG Q12H [facility] Rx#:[id number] Azactam Inj 2 GM In NS Inj 100 100 / 100 ML @ 200 mls/hr IV.SIG ONCE ONE Rx#:[id number] NS Inj 500 ML @ 1000 mls/hr IV. 1000 / 1000 SIG BOLUS [facility] Rx#:[id number] Flagyl 500 MG Inj 100 ML @ 100 200 / 200 100 / 100 100 / 100 mls/hr IV.SIG Q6H [facility] Rx#: [id number] Oral 240 / 240 400 / 400 Other 1000 / 1000 Output: Urine 5 / 5 250 / 250 Other: Other Intake Source Saline Solution Weight On Admission 106 kg Narrative: GENERAL: Well-nourished, well-developed patient. SKIN: Warm and dry. HEAD: Normocephalic. EYES: No scleral icterus. No injection or drainage. NECK: Supple, trachea midline. No JVD or lymphadenopathy. CARDIOVASCULAR: S1-S2 irregular tachycardia RESPIRATORY: Breath sounds equal bilaterally. No accessory muscle use. GASTROINTESTINAL: Abdomen soft, non-tender, nondistended. EXTREMITIES: Right hand has a dressing NEUROLOGICAL: Awake, alert, and oriented x 3. Non-focal. Results - Lab Results 05/17/18 05:35 05/17/18 05:35 Most recent lab results Calcium 7.9 mg/dL (8.5-10.1) L 05/17/18 05:35 Phosphorus 3.4 mg/dL (2.5-4.9) 05/17/18 05:35 Magnesium 1.7 mg/dL (1.5-2.5) 05/17/18 05:35 Assessment and Plan - Assessment (1) Acute kidney injury Code(s): N17.9 - Acute kidney failure, unspecified Status: Acute Plan: Patient FENa less than 1% indicating prerenal azotemia he responded to IV fluid continue with normal saline at 84 cc an hour Monitor BMP, urine output has picked up He does have evidence of chronic kidney disease he said he follows with a sprinkler installer up [place] in [place]. Check baseline JOSHUA and protein electrophoresis. (2) Chronic kidney disease Code(s): N18.9 - Chronic kidney disease, unspecified Status: Acute Plan: Follow-up with nephrology once he returns, protein electrophoresis/JOSHUA ordered (3) Essential hypertension Code(s): I10 - Essential (primary) hypertension Status: Chronic Plan: Continue to monitor (4) Atrial fibrillation Code(s): I48.91 - Unspecified atrial fibrillation Status: Chronic Plan: Currently under observation (5) Diverticulitis large intestine Code(s): K57.32 - Diverticulitis of large intestine without perforation or abscess without bleeding Status: Acute Plan: IV fluid and antibiotics received aztreonam and metronidazole, vancomycin was given (6) Normocytic anemia Code(s): D64.9 - Anemia, unspecified Status: Acute Plan: Anemic due to chronic kidney disease (7) Thrombocytopenia Code(s): D69.6 - Thrombocytopenia, unspecified Status: Acute Plan: Low likely due to sepsis (4) Atrial fibrillation Qualifiers: Atrial fibrillation type: unspecified Qualified Code(s): I48.91 - Unspecified atrial fibrillation (5) Diverticulitis large intestine Qualifiers: Diverticulitis complication: unspecified complication status
[2018-05-17] MEDS: Sod Chloride 0.9% Inj 1,000 ML IV.CONT SCH (17:22)
[2018-05-18] MEDS: Insulin NovoLOG Aspart Correctional Sugar Inj SQ SCH ×5 (00:15→23:54)
[2018-05-18] MEDS: Sod Chloride 0.9% Inj 1,000 ML IV.CONT SCH ×2 (00:15→11:38)
[2018-05-18 05:13] LABS: Baso % (Auto) 0.1 % (0.0-2.0); Eos % (Auto) 0.3 % (0.0-4.0); Hematocrit 29.3 % (39.0-51.0); Hemoglobin 9.7 gm/dL (13.0-17.0); Lymph # (Auto) 0.7 th/mm3 (1.0-4.8); Mean Corpuscular HGB Conc 33.2 % (32.0-36.0); Mean Corpuscular Hemoglobin 27.7 pg (27.0-34.0); Mean Corpuscular Volume 83.5 fL (80.0-100.0); Mean Platelet Volume 8.8 fL (7.0-11.0); Mono # (Auto) 0.5 th/mm3 (0.0-0.9); Mono % (Auto) 4.9 % (0.0-8.0); Neut # (Auto) 9.3 th/mm3 (1.8-7.7); Neut % (Auto) 87.7 % (16.0-70.0); Platelet Count 103 th/mm3 (150-450); Red Blood Count 3.51 mil/mm3 (4.50-5.90); Red Cell Distribution Width 16.7 % (11.6-17.2); White Blood Count 10.6 th/mm3 (4.0-11.0)
[2018-05-18 05:20] LABS: INR 2.4 Ratio; Prothrombin Time 24.3 sec (9.8-11.6)
[2018-05-18 05:47] LABS: Calcium 7.5 mg/dL (8.5-10.1); Carbon Dioxide 18.6 meq/L (21.0-32.0); Magnesium 1.7 mg/dL (1.5-2.5); Phosphorus 4.2 mg/dL (2.5-4.9); Potassium 4.5 meq/L (3.5-5.1); Vancomycin,Random 11.5 Comment
[2018-05-18] MEDS: Chlorhexidine Gluconate 2% 1 Pack (2 Cloths) TOPICAL SCH (06:06)
[2018-05-18] MEDS: Famotidine PF Inj 20 MG/2 ML Vial IV.PUSH SCH ×2 (08:33→20:53)
[2018-05-18] MEDS: Senna/Docusate Sodium 8.6/50 MG Tablet PO SCH ×2 (08:34→20:54)
[2018-05-18] MEDS ORDERED: Vancomycin Inj 1,600 MG in Sodium Chlor 0.9% Inj 500 ML IV.SIG ONE (11:00)
--- NOTE | 2018-05-18 11:33 | P.PNNP ---
Subjective Interval history: Patient overall feels better Physical Exam Vital signs: Vital Signs 05/17/18 12:00 05/17/18 12:45 05/17/18 13:00 Temperature 98.4 F Pulse Rate 105 H 96 H 100 H Respiratory Rate 28 H 39 H 23 Blood Pressure 135/74 124/66 Pulse Oximetry 96 95 93 L 05/17/18 13:15 05/17/18 13:30 05/17/18 13:45 Temperature Pulse Rate 102 H 93 H 103 H Respiratory Rate 31 H 15 25 H Blood Pressure 133/80 131/76 126/65 Pulse Oximetry 92 L 95 91 L 05/17/18 14:00 05/17/18 14:15 05/17/18 14:30 Temperature Pulse Rate 99 H 95 H 100 H Respiratory Rate 19 16 22 Blood Pressure 137/70 123/74 140/83 Pulse Oximetry 94 L 91 L 94 L 05/17/18 14:45 05/17/18 15:00 05/17/18 15:15 Temperature Pulse Rate 98 H 98 H 96 H Respiratory Rate 27 H 22 21 Blood Pressure 130/70 142/70 H 133/79 Pulse Oximetry 95 94 L 92 L 05/17/18 15:30 05/17/18 15:45 05/17/18 16:00 Temperature 97.3 F L Pulse Rate 94 H 98 H 92 H Respiratory Rate 18 25 H 16 Blood Pressure 134/82 119/66 149/81 H Pulse Oximetry 98 96 96 05/17/18 16:15 05/17/18 16:31 05/17/18 16:45 Temperature Pulse Rate 92 H 98 H 100 H Respiratory Rate 18 26 H 26 H Blood Pressure 142/84 H 149/84 H 152/104 H Pulse Oximetry 96 94 L 96 05/17/18 16:54 05/17/18 17:00 05/17/18 18:00 Temperature Pulse Rate 101 H 98 H 95 H Respiratory Rate 32 H 34 H 18 Blood Pressure 142/86 H 148/79 H 137/82 Pulse Oximetry 95 92 L 94 L 05/17/18 19:00 05/17/18 20:00 05/17/18 20:24 Temperature 97.8 F Pulse Rate 92 H 101 H 93 H Respiratory Rate 24 29 H 23 Blood Pressure 149/74 H 149/104 H 155/82 H Pulse Oximetry 93 L 96 93 L 05/17/18 21:00 05/17/18 21:10 05/17/18 22:00 Temperature Pulse Rate 101 H 98 H 93 H Respiratory Rate 37 H 44 H 21 Blood Pressure 172/85 H 141/75 H Pulse Oximetry 94 L 94 L 93 L 05/17/18 23:00 05/18/18 00:00 05/18/18 00:01 Temperature Pulse Rate 91 H 94 H 96 H Respiratory Rate 21 35 H 29 H Blood Pressure 137/84 94/54 L Pulse Oximetry 93 L 89 L 86 L 05/18/18 00:57 05/18/18 01:00 05/18/18 02:00 Temperature Pulse Rate 87 83 Respiratory Rate 11 L 12 Blood Pressure 100/52 L 102/63 Pulse Oximetry 95 93 L 94 L 05/18/18 03:00 05/18/18 03:08 05/18/18 04:00 Temperature Pulse Rate 91 H 101 H 97 H Respiratory Rate 41 H 28 H 28 H Blood Pressure 132/64 117/60 Pulse Oximetry 93 L 93 L 05/18/18 04:47 05/18/18 05:00 05/18/18 06:00 Temperature Pulse Rate 95 H 100 H Respiratory Rate 17 15 Blood Pressure 144/74 H Pulse Oximetry 95 93 L 92 L 05/18/18 06:01 05/18/18 06:59 05/18/18 07:00 Temperature Pulse Rate 100 H 97 H Respiratory Rate 16 15 Blood Pressure 120/65 121/65 Pulse Oximetry 94 L 93 L 05/18/18 07:36 05/18/18 08:00 05/18/18 09:00 Temperature 97.9 F Pulse Rate 97 H 114 H Respiratory Rate 17 41 H Blood Pressure 99/53 L Pulse Oximetry 92 L 91 L 93 L 05/18/18 09:52 05/18/18 10:00 Temperature Pulse Rate 109 H 107 H Respiratory Rate 26 H 32 H Blood Pressure 134/73 140/74 Pulse Oximetry 95 96 Intake & Output 05/17/18 05/18/18 05/18/18 18:59 06:59 18:59 Intake Total 1780 / 1780 800 / 800 100 / 100 Output Total 800 / 800 1700 / 1700 Balance 980 / 980 -900 / -900 100 / 100 Weight 110.5 kg Intake: IV 1200 / 1200 400 / 400 100 / 100 NS Inj 1,000 ML @ 84 mls/hr IV. 1000 / 1000 CONT .[id number] [facility] Rx#: [id number] Azactam Inj 1,000 MG In NS Inj 100 / 100 100 / 100 100 ML @ 200 mls/hr IV.SIG Q12H [facility] Rx#:[id number] Flagyl 500 MG Inj 100 ML @ 100 100 / 100 300 / 300 100 / 100 mls/hr IV.SIG Q6H [facility] Rx#: [id number] Oral 580 / 580 400 / 400 Output: Urine 800 / 800 1700 / 1700 Stool 0 / 0 Urine/Stool Mix 0 / 0 Other: # Voids 4 # Incontinent Voids 0 Date of Last Bowel Movement 05/17/18 05/17/18 05/17/18 # Bowel Movements 1 0 # Incontinent Bowel Movements 0 Narrative: GENERAL: Well-nourished, well-developed patient. SKIN: Warm and dry. HEAD: Normocephalic. EYES: No scleral icterus. No injection or drainage. NECK: Supple, trachea midline. No JVD or lymphadenopathy. CARDIOVASCULAR: S1-S2 irregular tachycardia RESPIRATORY: Breath sounds equal bilaterally. No accessory muscle use. GASTROINTESTINAL: Abdomen soft, non-tender, nondistended. EXTREMITIES: Right hand has a dressing NEUROLOGICAL: Awake, alert, and oriented x 3. Non-focal. Assessment and Plan - Assessment (1) Acute kidney injury Code(s): N17.9 - Acute kidney failure, unspecified Status: Acute Plan: Patient FENa less than 1% indicating prerenal azotemia he responded to IV fluid continue with normal saline at 84 cc an hour Urine eosinophil 0-2? Allergic reaction to the medication may be contributing Continue supportive care increase urine output noted 2.5 L creatinine remains elevated Follow BMP (2) Chronic kidney disease Code(s): N18.9 - Chronic kidney disease, unspecified Status: Acute Plan: Follow-up with nephrology once he returns, protein electrophoresis/JOSHUA ordered (3) Essential hypertension Code(s): I10 - Essential (primary) hypertension Status: Chronic Plan: Continue to monitor (4) Atrial fibrillation Code(s): I48.91 - Unspecified atrial fibrillation Status: Chronic Qualifiers: Atrial fibrillation type: unspecified Qualified Code(s): I48.91 - Unspecified atrial fibrillation Plan: Currently under observation (5) Diverticulitis large intestine Code(s): K57.32 - Diverticulitis of large intestine without perforation or abscess without bleeding Status: Acute Qualifiers: Diverticulitis complication: unspecified complication status Plan: IV fluid and antibiotics received aztreonam and metronidazole, vancomycin was given (6) Normocytic anemia Code(s): D64.9 - Anemia, unspecified Status: Acute Plan: Anemic due to chronic kidney disease (7) Thrombocytopenia Code(s): D69.6 - Thrombocytopenia, unspecified Status: Acute Plan: Low likely due to sepsis
--- NOTE | 2018-05-18 13:40 | P.PNIM ---
Subjective Interval history: Patient says he is feeling better. No other complaints from the patient. Physical Exam Vital signs: Vital Signs 05/17/18 13:30 05/17/18 13:45 05/17/18 14:00 Temperature Pulse Rate 93 H 103 H 99 H Respiratory Rate 15 25 H 19 Blood Pressure 131/76 126/65 137/70 Pulse Oximetry 95 91 L 94 L 05/17/18 14:15 05/17/18 14:30 05/17/18 14:45 Temperature Pulse Rate 95 H 100 H 98 H Respiratory Rate 16 22 27 H Blood Pressure 123/74 140/83 130/70 Pulse Oximetry 91 L 94 L 95 05/17/18 15:00 05/17/18 15:15 05/17/18 15:30 Temperature Pulse Rate 98 H 96 H 94 H Respiratory Rate 22 21 18 Blood Pressure 142/70 H 133/79 134/82 Pulse Oximetry 94 L 92 L 98 05/17/18 15:45 05/17/18 16:00 05/17/18 16:15 Temperature 97.3 F L Pulse Rate 98 H 92 H 92 H Respiratory Rate 25 H 16 18 Blood Pressure 119/66 149/81 H 142/84 H Pulse Oximetry 96 96 96 05/17/18 16:31 05/17/18 16:45 05/17/18 16:54 Temperature Pulse Rate 98 H 100 H 101 H Respiratory Rate 26 H 26 H 32 H Blood Pressure 149/84 H 152/104 H 142/86 H Pulse Oximetry 94 L 96 95 05/17/18 17:00 05/17/18 18:00 05/17/18 19:00 Temperature 97.8 F Pulse Rate 98 H 95 H 92 H Respiratory Rate 34 H 18 24 Blood Pressure 148/79 H 137/82 149/74 H Pulse Oximetry 92 L 94 L 93 L 05/17/18 20:00 05/17/18 20:24 05/17/18 21:00 Temperature Pulse Rate 101 H 93 H 101 H Respiratory Rate 29 H 23 37 H Blood Pressure 149/104 H 155/82 H Pulse Oximetry 96 93 L 94 L 05/17/18 21:10 05/17/18 22:00 05/17/18 23:00 Temperature Pulse Rate 98 H 93 H 91 H Respiratory Rate 44 H 21 21 Blood Pressure 172/85 H 141/75 H 137/84 Pulse Oximetry 94 L 93 L 93 L 02/23/19 00:00 05/18/18 00:01 05/18/18 00:57 Temperature Pulse Rate 94 H 96 H Respiratory Rate 35 H 29 H Blood Pressure 94/54 L Pulse Oximetry 89 L 86 L 95 05/18/18 01:00 05/18/18 02:00 05/18/18 03:00 Temperature Pulse Rate 87 83 91 H Respiratory Rate 11 L 12 41 H Blood Pressure 100/52 L 102/63 Pulse Oximetry 93 L 94 L 05/18/18 03:08 05/18/18 04:00 05/18/18 04:47 Temperature Pulse Rate 101 H 97 H Respiratory Rate 28 H 28 H Blood Pressure 132/64 117/60 Pulse Oximetry 93 L 93 L 95 05/18/18 05:00 05/18/18 06:00 05/18/18 06:01 Temperature Pulse Rate 95 H 100 H 100 H Respiratory Rate 17 15 16 Blood Pressure 144/74 H 120/65 Pulse Oximetry 93 L 92 L 94 L 05/18/18 06:59 05/18/18 07:00 05/18/18 07:36 Temperature Pulse Rate 97 H Respiratory Rate 15 Blood Pressure 121/65 Pulse Oximetry 93 L 92 L 05/18/18 08:00 05/18/18 09:00 05/18/18 09:52 Temperature 97.9 F Pulse Rate 97 H 114 H 109 H Respiratory Rate 17 41 H 26 H Blood Pressure 99/53 L 134/73 Pulse Oximetry 91 L 93 L 95 05/18/18 10:00 Temperature Pulse Rate 107 H Respiratory Rate 32 H Blood Pressure 140/74 Pulse Oximetry 96 Intake & Output 05/17/18 05/18/18 05/18/18 18:59 06:59 18:59 Intake Total 1780 / 1780 800 / 800 100 / 100 Output Total 800 / 800 1700 / 1700 Balance 980 / 980 -900 / -900 100 / 100 Weight 110.5 kg Intake: IV 1200 / 1200 400 / 400 100 / 100 NS Inj 1,000 ML @ 84 mls/hr IV. 1000 / 1000 CONT .[id number] [facility] Rx#: [id number] Azactam Inj 1,000 MG In NS Inj 100 / 100 100 / 100 100 ML @ 200 mls/hr IV.SIG Q12H [facility] Rx#:[id number] Flagyl 500 MG Inj 100 ML @ 100 100 / 100 300 / 300 100 / 100 mls/hr IV.SIG Q6H [facility] Rx#: [id number] Oral 580 / 580 400 / 400 Output: Urine 800 / 800 1700 / 1700 Stool 0 / 0 Urine/Stool Mix 0 / 0 Other: # Voids 4 # Incontinent Voids 0 Date of Last Bowel Movement 05/17/18 05/17/18 05/17/18 # Bowel Movements 1 0 # Incontinent Bowel Movements 0 Narrative: Awake and alert, says he feels better today S1S2 CTA b/l abd soft, nontender to palpation, bowel sounds present No focal neuro deficits. Results Labs CBC & Chem 7: 05/18/18 04:57 05/18/18 04:57 Labs: Microbiology 05/16/18 10:40 Blood - Peripheral Aerobic Blood Culture - Preliminary No growth in 2 days 05/16/18 10:40 Blood - Peripheral Anaerobic Blood Culture - Preliminary No growth in 2 days 05/16/18 10:50 Blood - Peripheral Aerobic Blood Culture - Preliminary No growth in 2 days 05/16/18 10:50 Blood - Peripheral Anaerobic Blood Culture - Preliminary No growth in 2 days Assessment and Plan (1) Acute kidney injury: Code(s): N17.9 - Acute kidney failure, unspecified Status: Acute (2) Chronic kidney disease: Code(s): N18.9 - Chronic kidney disease, unspecified Status: Acute (3) Essential hypertension: Code(s): I10 - Essential (primary) hypertension Status: Chronic (4) Atrial fibrillation: Code(s): I48.91 - Unspecified atrial fibrillation Status: Chronic (5) Diverticulitis large intestine: Code(s): K57.32 - Diverticulitis of large intestine without perforation or abscess without bleeding Status: Acute (6) Normocytic anemia: Code(s): D64.9 - Anemia, unspecified Status: Acute (7) Thrombocytopenia: Code(s): D69.6 - Thrombocytopenia, unspecified Status: Acute Plan This patient is a 78 y/o male with a hx of CAD s/p Cabg, Peripheral Arterial disease s/p b/l iliac stents, DLD, HTN, A fib on Coumadin. Patient hit his right lower ext recently and suffered an abrasion to the right ant hand. He went to an urgent care center and was started on bactrim. The following day he took the medications and 40 minutes later began to feel sick. He had abd pain, and broke out in a rash of the upper and lower exts. He called 911 and diphenhydramine was given and he was brought into the ed. 1. Anaphylaxis 2/2 medication bactrim. 2. Lactic acidosis 2/2 #1 3. Elevated troponin 2/2 #1 4. MICHAEL on CKD Patient was in shock in our icu requiring pressors. Now off of pressors, blood pressure stable Rash has resolved. Now off of benadryl, will give prn. Lactate normalized No significant trend of trops. EKG showed sinus tachy, no acute st or twave changes. Baseline cr unknown to me. Nephrology following, continue IVF Monitor stricts ins/outs Avoid nephrotoxic agents. 5. Diverticulitis 6. Right lower ext cellulitis Continue iv antibiotics Abd pain improving. Famotidine bid 6. A fib 7. PAD INR therapeutic Continue coumadin, plavix 8. Metabolic acidosis likely 2/2 MICHAEL Bicarb 18, respiratory rate elevated. Will obtain an abg. Nephrology following. Continue antibiotics. Lactate had normalized. Anion gap normal. Progress Note: Quality VTE Deep Vein Thrombosis/Pulmonary Embolism Present on Admission: No _ (1) Chronic kidney disease Qualifiers: Chronic kidney disease stage: (2) Atrial fibrillation Qualifiers: Atrial fibrillation type: unspecified Qualified Code(s): I48.91 - Unspecified atrial fibrillation (3) Diverticulitis large intestine Qualifiers: Diverticulitis bleeding: Diverticulitis complication: unspecified complication status
[2018-05-18 14:33] LABS: ABG Base Excess -8.2 mmol/L (-2-2); ABG PCO2 28 mmHg (38-42); ABG PO2 77 mmHG (61-120)
[2018-05-18 21:19] LABS: Bilirubin,Urine Negative (Negative); Clarity,Urine Clear (Clear); Color,Urine Yellow (Yellw/Straw); Glucose,Urine (UA) Negative (Negative); Leukocyte Esterase,Urine Small (Negative); Mucus,Urine Few /lpf (Occasional); Nitrite,Urine Negative (Negative); Specific Gravity,Urine 1.011 (1.002-1.035)
[2018-05-19] MEDS: Sod Chloride 0.9% Inj 1,000 ML IV.CONT SCH (02:55)
[2018-05-19] MEDS: Chlorhexidine Gluconate 2% 1 Pack (2 Cloths) TOPICAL SCH (03:15)
[2018-05-19] MEDS: Insulin NovoLOG Aspart Correctional Sugar Inj SQ SCH ×3 (05:48→18:09)
[2018-05-19 06:58] LABS: Calcium 7.5 mg/dL (8.5-10.1); Carbon Dioxide 20.8 meq/L (21.0-32.0); Magnesium 1.9 mg/dL (1.5-2.5); Potassium 4.5 meq/L (3.5-5.1)
[2018-05-19 07:15] LABS: INR 2.3 Ratio
[2018-05-19] MEDS: Senna/Docusate Sodium 8.6/50 MG Tablet PO SCH ×2 (09:03→20:11)
[2018-05-19] MEDS: Famotidine PF Inj 20 MG/2 ML Vial IV.PUSH SCH ×2 (09:04→20:08)
--- NOTE | 2018-05-19 10:28 | P.PNIM ---
Subjective Interval history: Patient has complaints of right lower back pain. Some pain in the right hip as well. Physical Exam Vital signs: Vital Signs 05/18/18 11:00 05/18/18 12:00 05/18/18 13:00 Temperature 98.1 F Pulse Rate 97 H 98 H 82 Respiratory Rate 24 21 23 Blood Pressure 132/72 139/67 116/69 Pulse Oximetry 98 92 L 95 05/18/18 14:00 05/18/18 15:00 05/18/18 16:00 Temperature Pulse Rate 78 78 85 Respiratory Rate 32 H 34 H 28 H Blood Pressure 119/71 134/64 129/73 Pulse Oximetry 05/18/18 17:00 05/18/18 18:00 05/18/18 19:00 Temperature Pulse Rate 74 76 76 Respiratory Rate 21 33 H 37 H Blood Pressure 115/71 108/70 116/69 Pulse Oximetry 05/18/18 20:00 05/18/18 20:05 05/18/18 21:00 Temperature 98 F Pulse Rate 79 82 Respiratory Rate 39 H 23 Blood Pressure 128/75 113/69 Pulse Oximetry 97 97 97 05/18/18 22:00 05/18/18 22:04 05/18/18 23:00 Temperature Pulse Rate 74 81 76 Respiratory Rate 20 35 H 22 Blood Pressure 127/72 143/78 H Pulse Oximetry 05/19/18 00:00 05/19/18 01:00 05/19/18 02:00 Temperature Pulse Rate 75 80 96 H Respiratory Rate 23 17 16 Blood Pressure 119/68 113/65 132/67 Pulse Oximetry 05/19/18 03:00 05/19/18 04:00 05/19/18 05:00 Temperature Pulse Rate 79 75 83 Respiratory Rate 16 12 12 Blood Pressure 120/70 112/60 114/64 Pulse Oximetry 05/19/18 06:00 05/19/18 06:01 05/19/18 07:40 Temperature Pulse Rate 75 103 H Respiratory Rate 16 39 H Blood Pressure 134/68 Pulse Oximetry 94 L Intake & Output 05/18/18 05/19/18 05/19/18 18:59 06:59 18:59 Intake Total 1986 / 1986 2100 / 2100 Output Total 375 / 375 1550 / 1550 Balance 1612 / 1612 550 / 550 Weight 111 kg Intake: IV 816 / 816 1800 / 1800 NS Inj 1,000 ML @ 84 mls/hr IV. 1400 / 1400 CONT .[id number] [facility] Rx#: [id number] Azactam Inj 1,000 MG In NS Inj 100 / 100 100 / 100 100 ML @ 200 mls/hr IV.SIG Q12H [facility] Rx#:[id number] Vancomycin Inj 1,600 MG In NS 516 / 516 Inj 500 ML @ 250 mls/hr IV.SIG ONCE ONE Rx#:[id number] Flagyl 500 MG Inj 100 ML @ 100 200 / 200 300 / 300 mls/hr IV.SIG Q6H [facility] Rx#: [id number] Oral 300 / 300 Tube Feeding 1171 / 1171 Output: Urine 1550 / 1550 Urine Amount (Catheter) 375 / 375 Indwelling Urethral Catheter 375 / 375 Other: Date of Last Bowel Movement 05/17/18 05/17/18 # Bowel Movements 2 Narrative: Awake and alert, says he feels better today S1S2 CTA b/l abd soft, nontender to palpation, bowel sounds present complains of right hip pain and right sided lower back pain. No focal neuro deficits. Urinary Catheter Management Indwelling Urethral Catheter: Cath placed during this visit: no Results Labs CBC & Chem 7: 05/18/18 04:57 05/19/18 06:04 Labs: Microbiology 05/16/18 10:40 Blood - Peripheral Aerobic Blood Culture - Preliminary No growth in 2 days 05/16/18 10:40 Blood - Peripheral Anaerobic Blood Culture - Preliminary No growth in 2 days 05/16/18 10:50 Blood - Peripheral Aerobic Blood Culture - Preliminary No growth in 2 days 05/16/18 10:50 Blood - Peripheral Anaerobic Blood Culture - Preliminary No growth in 2 days Assessment and Plan (1) Acute kidney injury: Code(s): N17.9 - Acute kidney failure, unspecified Status: Acute (2) Chronic kidney disease: Code(s): N18.9 - Chronic kidney disease, unspecified Status: Acute (3) Essential hypertension: Code(s): I10 - Essential (primary) hypertension Status: Chronic (4) Atrial fibrillation: Code(s): I48.91 - Unspecified atrial fibrillation Status: Chronic (5) Diverticulitis large intestine: Code(s): K57.32 - Diverticulitis of large intestine without perforation or abscess without bleeding Status: Acute (6) Normocytic anemia: Code(s): D64.9 - Anemia, unspecified Status: Acute (7) Thrombocytopenia: Code(s): D69.6 - Thrombocytopenia, unspecified Status: Acute Plan This patient is a 78 y/o male with a hx of CAD s/p Cabg, Peripheral Arterial disease s/p b/l iliac stents, DLD, HTN, A fib on Coumadin. Patient hit his right lower ext recently and suffered an abrasion to the right ant hand. He went to an urgent care center and was started on bactrim. The following day he took the medications and 40 minutes later began to feel sick. He had abd pain, and broke out in a rash of the upper and lower exts. He called 911 and diphenhydramine was given and he was brought into the ed. 1. Anaphylaxis 2/2 medication bactrim. 2. Lactic acidosis 2/2 #1 3. Elevated troponin 2/2 #1 4. MICHAEL on CKD Patient was in shock in our icu requiring pressors. Now off of pressors, blood pressure stable Rash has resolved. Now off of benadryl, will give prn. Lactate normalized No significant trend of trops. EKG showed sinus tachy, no acute st or twave changes. Baseline cr unknown to me. Serum cr improving to 3.3 today. Nephrology following, continue IVF, switched to LR, Cl continues to elevate while on NS, Bicarb improved to 20. Monitor stricts ins/outs Avoid nephrotoxic agents. 5. Diverticulitis 6. Right lower ext cellulitis Continue iv antibiotics Abd pain improving. Famotidine bid 6. A fib 7. PAD INR therapeutic Continue coumadin, plavix 8. Metabolic acidosis likely 2/2 MICHAEL Bicarb improved to 20, respiratory rate has improved as well. Nephrology following. Continue antibiotics. Lactate had normalized. Anion gap normal. 9. HTN Started on norvasc. Continue to monitor and adjust if needed. 10. Right hip pain/Right lower back pain Xray shows no fx Given dilaudid 0.5mg iv by nephrology, helped with pain. Cont prn. Once patient is cleared by Nephrology we will plan for discharge. DVT prophylaxis, pt is one Coumadin, INR therapeutic. Transfer pt out of the ICU. Patient is stable. Progress Note: Quality VTE Deep Vein Thrombosis/Pulmonary Embolism Present on Admission: No _ (1) Atrial fibrillation Qualifiers: Atrial fibrillation type: unspecified Qualified Code(s): I48.91 - Unspecified atrial fibrillation (2) Chronic kidney disease Qualifiers: Chronic kidney disease stage: (3) Diverticulitis large intestine Qualifiers: Diverticulitis bleeding: Diverticulitis complication: unspecified complication status
--- NOTE | 2018-05-19 10:36 | P.PNNP ---
Subjective Interval history: Patient feels painful rt hip pain Physical Exam Vital signs: Vital Signs 05/18/18 11:00 05/18/18 12:00 05/18/18 13:00 Temperature 98.1 F Pulse Rate 97 H 98 H 82 Respiratory Rate 24 21 23 Blood Pressure 132/72 139/67 116/69 Pulse Oximetry 98 92 L 95 05/18/18 14:00 05/18/18 15:00 05/18/18 16:00 Temperature Pulse Rate 78 78 85 Respiratory Rate 32 H 34 H 28 H Blood Pressure 119/71 134/64 129/73 Pulse Oximetry 05/18/18 17:00 05/18/18 18:00 05/18/18 19:00 Temperature Pulse Rate 74 76 76 Respiratory Rate 21 33 H 37 H Blood Pressure 115/71 108/70 116/69 Pulse Oximetry 05/18/18 20:00 05/18/18 20:05 05/18/18 21:00 Temperature 98 F Pulse Rate 79 82 Respiratory Rate 39 H 23 Blood Pressure 128/75 113/69 Pulse Oximetry 97 97 97 05/18/18 22:00 05/18/18 22:04 05/18/18 23:00 Temperature Pulse Rate 74 81 76 Respiratory Rate 20 35 H 22 Blood Pressure 127/72 143/78 H Pulse Oximetry 05/19/18 00:00 05/19/18 01:00 05/19/18 02:00 Temperature Pulse Rate 75 80 96 H Respiratory Rate 23 17 16 Blood Pressure 119/68 113/65 132/67 Pulse Oximetry 05/19/18 03:00 05/19/18 04:00 05/19/18 05:00 Temperature Pulse Rate 79 75 83 Respiratory Rate 16 12 12 Blood Pressure 120/70 112/60 114/64 Pulse Oximetry 05/19/18 06:00 05/19/18 06:01 05/19/18 07:40 Temperature Pulse Rate 75 103 H Respiratory Rate 16 39 H Blood Pressure 134/68 Pulse Oximetry 94 L Intake & Output 05/18/18 05/19/18 05/19/18 18:59 06:59 18:59 Intake Total 1986 / 1986 2099 / 2099 Output Total 375 / 375 1550 / 1550 Balance 1612 / 1612 550 / 550 Weight 111 kg Intake: IV 816 / 816 1800 / 1800 NS Inj 1,000 ML @ 84 mls/hr IV. 1400 / 1400 CONT .[id number] [facility] Rx#: [id number] Azactam Inj 1,000 MG In NS Inj 100 / 100 100 / 100 100 ML @ 200 mls/hr IV.SIG Q12H [facility] Rx#:[id number] Vancomycin Inj 1,600 MG In NS 516 / 516 Inj 500 ML @ 250 mls/hr IV.SIG ONCE ONE Rx#:[id number] Flagyl 500 MG Inj 100 ML @ 100 200 / 200 300 / 300 mls/hr IV.SIG Q6H [facility] Rx#: [id number] Oral 300 / 300 Tube Feeding 1171 / 1171 Output: Urine 1550 / 1550 Urine Amount (Catheter) 375 / 375 Indwelling Urethral Catheter 375 / 375 Other: Date of Last Bowel Movement 05/17/18 05/17/18 # Bowel Movements 2 Narrative: GENERAL: Well-nourished, well-developed patient. SKIN: Warm and dry. HEAD: Normocephalic. EYES: No scleral icterus. No injection or drainage. NECK: Supple, trachea midline. No JVD or lymphadenopathy. CARDIOVASCULAR: S1-S2 irregular tachycardia RESPIRATORY: Breath sounds equal bilaterally. No accessory muscle use. GASTROINTESTINAL: Abdomen soft, non-tender, nondistended. EXTREMITIES: Right hand has a dressing NEUROLOGICAL: Awake, alert, and oriented x 3. Non-focal. - Urinary Catheter Management Indwelling Urethral Catheter Cath placed during this visit: no Assessment and Plan - Assessment (1) Acute kidney injury Code(s): N17.9 - Acute kidney failure, unspecified Status: Acute Plan: Patient FENa less than 1% indicating prerenal azotemia he responded to IV fluid continue with normal saline at 84 cc an hour Urine eosinophil 0-2? Allergic reaction to the medication may be contributing Continue supportive care, urine output noted 1.5 L creatinine 3.3 Follow BMP painful hip Dilaudid x 1 dose and hip X ray (2) Chronic kidney disease Code(s): N18.9 - Chronic kidney disease, unspecified Status: Acute Plan: Follow-up with nephrology once he returns, protein electrophoresis/JOSHUA ordered (3) Essential hypertension Code(s): I10 - Essential (primary) hypertension Status: Chronic Plan: Continue to monitor (4) Atrial fibrillation Code(s): I48.91 - Unspecified atrial fibrillation Status: Chronic Qualifiers: Atrial fibrillation type: unspecified Qualified Code(s): I48.91 - Unspecified atrial fibrillation Plan: Currently under observation (5) Diverticulitis large intestine Code(s): K57.32 - Diverticulitis of large intestine without perforation or abscess without bleeding Status: Acute Qualifiers: Diverticulitis complication: unspecified complication status Plan: IV fluid and antibiotics received aztreonam and metronidazole, vancomycin was given (6) Normocytic anemia Code(s): D64.9 - Anemia, unspecified Status: Acute Plan: Anemic due to chronic kidney disease Check iron stores and ferritin (7) Thrombocytopenia Code(s): D69.6 - Thrombocytopenia, unspecified Status: Acute Plan: Low likely due to sepsis
[2018-05-19] MEDS ORDERED: HYDROmorphone PF Inj 2 MG/ML Vial IV.PUSH ONE (10:56)
--- NOTE | 2018-05-19 11:50 | XR ---
EXAM DATE: 05/19/2018 11:37 AM EST AGE/SEX: 78 years / Male INDICATIONS: Pain in inner and outer right hip. CLINICAL DATA: This is the patient's initial encounter. Patient reports that signs and symptoms have been present for 1 day and indicates a pain score of 9/10. MEDICAL/SURGICAL HISTORY: . Hypercholesterolemia. Hypertension. Cardiovascular disease. Gout. A trial fibrillation. CABG. Multiple aneurysm repair. Umbilical hernia repair. . COMPARISON: No prior exams available for comparison. FINDINGS: Limited exam by body habitus. No displaced fracture. CT scanning may be helpful. CONCLUSION: Severely limited, no fracture Electronically signed by: Luis Polanco MD Board Certified Radiologist 05/19/2018 11:49 AM EST
[2018-05-19] MEDS ORDERED: HYDROmorphone PF Inj 0.5 MG/0.5 ML Syringe IV.PUSH PRN (16:04)
[2018-05-19] MEDS: amLODIPine 5 MG Tablet PO SCH (16:27)
[2018-05-19] MEDS ORDERED: HYDROmorphone PF Inj 1 MG/ML Ampul IV.PUSH PRN (16:30)
[2018-05-19] MEDS: HYDROmorphone PF Inj 1 MG/ML Ampul IV.PUSH PRN (20:09)
[2018-05-20] MEDS: HYDROmorphone PF Inj 1 MG/ML Ampul IV.PUSH PRN (00:15)
[2018-05-20] MEDS: Insulin NovoLOG Aspart Correctional Sugar Inj SQ SCH ×5 (00:39→23:43)
[2018-05-20] MEDS: Chlorhexidine Gluconate 2% 1 Pack (2 Cloths) TOPICAL SCH (04:19)
[2018-05-20] MEDS ORDERED: Pharmacy Ordered Lab Info OTHER ONE (06:00)
[2018-05-20 08:34] LABS: Baso % (Auto) 0.4 % (0.0-2.0); Eos # (Auto) 0.3 th/mm3 (0.0-0.4); Eos % (Auto) 3.8 % (0.0-4.0); Hematocrit 24.9 % (39.0-51.0); Hemoglobin 8.2 gm/dL (13.0-17.0); Lymph # (Auto) 1.4 th/mm3 (1.0-4.8); Lymph % (Auto) 18.3 % (9.0-44.0); Mean Corpuscular Hemoglobin 27.5 pg (27.0-34.0); Mean Corpuscular Volume 83.5 fL (80.0-100.0); Mean Platelet Volume 8.9 fL (7.0-11.0); Mono # (Auto) 0.9 th/mm3 (0.0-0.9); Mono % (Auto) 12.3 % (0.0-8.0); Neut % (Auto) 65.2 % (16.0-70.0); Platelet Count 130 th/mm3 (150-450); Red Blood Count 2.98 mil/mm3 (4.50-5.90); Red Cell Distribution Width 16.5 % (11.6-17.2); White Blood Count 7.7 th/mm3 (4.0-11.0)
[2018-05-20 08:42] LABS: INR 2.5 Ratio; Prothrombin Time 25.6 sec (9.8-11.6)
[2018-05-20] MEDS: amLODIPine 5 MG Tablet PO SCH (08:43)
[2018-05-20] MEDS: Senna/Docusate Sodium 8.6/50 MG Tablet PO SCH ×2 (08:43→21:26)
[2018-05-20] MEDS: Famotidine PF Inj 20 MG/2 ML Vial IV.PUSH SCH ×2 (08:43→21:24)
[2018-05-20 08:57] LABS: Calcium 7.9 mg/dL (8.5-10.1); Potassium 4.3 meq/L (3.5-5.1)
[2018-05-20] MEDS ORDERED: Vancomycin Inj 1,500 MG in Sodium Chlor 0.9% Inj 500 ML IV.SIG ONE (11:00)
--- NOTE | 2018-05-20 11:02 | P.PNNP ---
Subjective Interval history: Patient is tachycardic Physical Exam Vital signs: Vital Signs 05/19/18 11:00 05/19/18 11:49 05/19/18 12:00 Temperature 98 F Pulse Rate 86 93 H 100 H Respiratory Rate 36 H 23 26 H Blood Pressure 183/97 H 170/101 H Pulse Oximetry 95 95 05/19/18 12:14 05/19/18 13:00 05/19/18 14:00 Temperature Pulse Rate 100 H 102 H 106 H Respiratory Rate 32 H 23 31 H Blood Pressure 174/104 H 191/98 H Pulse Oximetry 05/19/18 14:01 05/19/18 14:35 05/19/18 15:00 Temperature Pulse Rate 108 H 117 H 107 H Respiratory Rate 28 H 27 H 22 Blood Pressure 173/142 H 175/103 H Pulse Oximetry 05/19/18 15:01 05/19/18 16:00 05/19/18 17:00 Temperature Pulse Rate 105 H 109 H 112 H Respiratory Rate 22 25 H 19 Blood Pressure 158/90 H 159/86 H 164/84 H Pulse Oximetry 05/19/18 17:50 05/19/18 17:59 05/19/18 18:00 Temperature 98.3 F Pulse Rate 125 H 115 H 112 H Respiratory Rate 22 26 H Blood Pressure 164/84 H Pulse Oximetry 94 L 05/19/18 18:01 05/19/18 18:11 05/19/18 19:00 Temperature Pulse Rate 119 H 143 H Respiratory Rate 27 H 21 37 H Blood Pressure 162/75 H 144/98 H Pulse Oximetry 05/19/18 20:00 05/19/18 20:35 05/19/18 21:00 Temperature Pulse Rate 119 H 119 H Respiratory Rate 40 H 10 L 11 L Blood Pressure 132/101 H 139/83 Pulse Oximetry 97 05/19/18 22:00 05/19/18 23:00 05/20/18 00:00 Temperature Pulse Rate 122 H 113 H 114 H Respiratory Rate 22 12 10 L Blood Pressure 125/75 129/58 L 116/63 Pulse Oximetry 05/20/18 00:39 05/20/18 01:00 05/20/18 01:01 Temperature Pulse Rate 119 H 119 H Respiratory Rate 12 12 13 Blood Pressure 130/77 Pulse Oximetry 05/20/18 02:00 05/20/18 02:01 05/20/18 03:00 Temperature Pulse Rate 115 H 116 H 116 H Respiratory Rate 11 L 18 21 Blood Pressure 160/80 H 123/85 Pulse Oximetry 05/20/18 03:01 05/20/18 04:00 05/20/18 05:00 Temperature Pulse Rate 116 H 116 H 111 H Respiratory Rate 20 16 14 Blood Pressure 123/85 129/77 Pulse Oximetry 05/20/18 05:01 05/20/18 06:00 05/20/18 07:00 Temperature Pulse Rate 112 H 110 H 142 H Respiratory Rate 20 17 29 H Blood Pressure 144/85 H 148/82 H 158/85 H Pulse Oximetry 05/20/18 07:32 05/20/18 08:00 05/20/18 09:00 Temperature 98.0 F Pulse Rate 118 H 129 H Respiratory Rate 15 36 H Blood Pressure 141/78 H 142/81 H Pulse Oximetry 100 95 05/20/18 09:28 05/20/18 09:29 05/20/18 09:33 Temperature Pulse Rate 132 H 129 H 139 H Respiratory Rate 37 H 23 22 Blood Pressure 143/82 H 150/73 H 128/69 Pulse Oximetry 05/20/18 10:00 Temperature Pulse Rate 132 H Respiratory Rate 25 H Blood Pressure 123/77 Pulse Oximetry Intake & Output 05/19/18 05/20/18 05/20/18 18:59 06:59 18:59 Intake Total 876 / 876 2153 / 2153 447 / 447 Output Total 500 / 500 450 / 450 Balance 376 / 376 1703 / 1703 447 / 447 Weight 111.4 kg Intake: IV 636 / 636 1853 / 1853 447 / 447 LR 1000 mL Inj 1,000 ML @ 84 1553 / 1553 447 / 447 mls/hr IV.CONT .[id number] [facility] Rx# :[id number] Azactam Inj 1,000 MG In NS Inj 100 / 100 100 / 100 100 ML @ 200 mls/hr IV.SIG Q12H [facility] Rx#:[id number] Flagyl 500 MG Inj 100 ML @ 100 200 / 200 200 / 200 mls/hr IV.SIG Q6H [facility] Rx#: [id number] Oral 240 / 240 300 / 300 Output: Urine 500 / 500 300 / 300 Emesis 150 / 150 Other: Date of Last Bowel Movement 05/18/18 05/19/18 05/20/18 # Emeses 3 Narrative: GENERAL: Well-nourished, well-developed patient. SKIN: Warm and dry. HEAD: Normocephalic. EYES: No scleral icterus. No injection or drainage. NECK: Supple, trachea midline. No JVD or lymphadenopathy. CARDIOVASCULAR: S1-S2 irregular tachycardia RESPIRATORY: Breath sounds equal bilaterally. No accessory muscle use. GASTROINTESTINAL: Abdomen soft, non-tender, nondistended. EXTREMITIES: Right hand has a dressing NEUROLOGICAL: Awake, alert, and oriented x 3. Non-focal. - Urinary Catheter Management Indwelling Urethral Catheter Cath placed during this visit: no Assessment and Plan - Assessment (1) Acute kidney injury Code(s): N17.9 - Acute kidney failure, unspecified Status: Acute Plan: Patient FENa less than 1% indicating prerenal azotemia he responded to IV fluid getting LR bolus 500 cc as tachycardic, patient has some nausea and vomiting last night Urine eosinophil 0-2? Allergic reaction to the medication may be contributing Continue supportive care, urine output noted to 1 L approximately creatinine 3.02 Iron deficiency Venofer ordered Follow up as outpatient okay to discharge from nephrology point of view Hip pain better (2) Chronic kidney disease Code(s): N18.9 - Chronic kidney disease, unspecified Status: Acute Plan: Follow-up with nephrology once he returns, JOSHUA negative protein electrophoresis / ordered (3) Essential hypertension Code(s): I10 - Essential (primary) hypertension Status: Chronic Plan: Continue to monitor (4) Atrial fibrillation Code(s): I48.91 - Unspecified atrial fibrillation Status: Chronic Qualifiers: Atrial fibrillation type: unspecified Qualified Code(s): I48.91 - Unspecified atrial fibrillation Plan: Currently under observation (5) Diverticulitis large intestine Code(s): K57.32 - Diverticulitis of large intestine without perforation or abscess without bleeding Status: Acute Qualifiers: Diverticulitis complication: unspecified complication status Plan: IV fluid and antibiotics received aztreonam and metronidazole, vancomycin was given (6) Normocytic anemia Code(s): D64.9 - Anemia, unspecified Status: Acute Plan: Anemic due to chronic kidney disease Check iron stores and ferritin (7) Thrombocytopenia Code(s): D69.6 - Thrombocytopenia, unspecified Status: Acute Plan: Low likely due to sepsis
[2018-05-20] MEDS ORDERED: Iron Sucrose Complex Inj 200 MG in Sodium Chlor 0.9% Inj 100 ML IV.SIG ONE (12:00)
--- NOTE | 2018-05-20 12:45 | P.PNIM ---
Subjective Interval history: Patient says his back pain and hip pain are still present but improved since yesterday. No other complaints. Physical Exam Vital signs: Vital Signs 05/19/18 13:00 05/19/18 14:00 05/19/18 14:01 Temperature Pulse Rate 102 H 106 H 108 H Respiratory Rate 23 31 H 28 H Blood Pressure 191/98 H 173/142 H Pulse Oximetry 05/19/18 14:35 05/19/18 15:00 05/19/18 15:01 Temperature Pulse Rate 117 H 107 H 105 H Respiratory Rate 27 H 22 22 Blood Pressure 175/103 H 158/90 H Pulse Oximetry 05/19/18 16:00 05/19/18 17:00 05/19/18 17:50 Temperature 98.3 F Pulse Rate 109 H 112 H 125 H Respiratory Rate 25 H 19 22 Blood Pressure 159/86 H 164/84 H 164/84 H Pulse Oximetry 94 L 05/19/18 17:59 05/19/18 18:00 05/19/18 18:01 Temperature Pulse Rate 115 H 112 H 119 H Respiratory Rate 26 H 27 H Blood Pressure 162/75 H Pulse Oximetry 05/19/18 18:11 05/19/18 19:00 05/19/18 20:00 Temperature Pulse Rate 143 H 119 H Respiratory Rate 21 37 H 40 H Blood Pressure 144/98 H 132/101 H Pulse Oximetry 97 05/19/18 20:35 05/19/18 21:00 05/19/18 22:00 Temperature Pulse Rate 119 H 122 H Respiratory Rate 10 L 11 L 22 Blood Pressure 139/83 125/75 Pulse Oximetry 05/19/18 23:00 05/20/18 00:00 05/20/18 00:39 Temperature Pulse Rate 113 H 114 H Respiratory Rate 12 10 L 12 Blood Pressure 129/58 L 116/63 Pulse Oximetry 05/20/18 01:00 05/20/18 01:01 05/20/18 02:00 Temperature Pulse Rate 119 H 119 H 115 H Respiratory Rate 12 13 11 L Blood Pressure 130/77 Pulse Oximetry 05/20/18 02:01 05/20/18 03:00 05/20/18 03:01 Temperature Pulse Rate 116 H 116 H 116 H Respiratory Rate 18 21 20 Blood Pressure 160/80 H 123/85 123/85 Pulse Oximetry 05/20/18 04:00 05/20/18 05:00 05/20/18 05:01 Temperature Pulse Rate 116 H 111 H 112 H Respiratory Rate 16 14 20 Blood Pressure 129/77 144/85 H Pulse Oximetry 05/20/18 06:00 05/20/18 07:00 05/20/18 07:32 Temperature Pulse Rate 110 H 142 H Respiratory Rate 17 29 H Blood Pressure 148/82 H 158/85 H Pulse Oximetry 100 05/20/18 08:00 05/20/18 09:00 05/20/18 09:28 Temperature 98.0 F Pulse Rate 118 H 129 H 132 H Respiratory Rate 15 36 H 37 H Blood Pressure 141/78 H 142/81 H 143/82 H Pulse Oximetry 95 05/20/18 09:29 05/20/18 09:33 05/20/18 10:00 Temperature Pulse Rate 129 H 139 H 132 H Respiratory Rate 23 22 25 H Blood Pressure 150/73 H 128/69 123/77 Pulse Oximetry 05/20/18 11:00 05/20/18 11:01 05/20/18 12:00 Temperature 98.7 F Pulse Rate 133 H 128 H 131 H Respiratory Rate 40 H 25 H 32 H Blood Pressure 133/75 146/70 H Pulse Oximetry Intake & Output 05/19/18 05/20/18 05/20/18 18:59 06:59 18:59 Intake Total 876 / 876 2153 / 2153 947 / 947 Output Total 500 / 500 450 / 450 Balance 376 / 376 1703 / 1703 947 / 947 Weight 111.4 kg Intake: IV 636 / 636 1853 / 1853 947 / 947 LR 1000 mL Inj 1,000 ML @ 84 1553 / 1553 447 / 447 mls/hr IV.CONT .[id number] [facility] Rx# :[id number] Azactam Inj 1,000 MG In NS Inj 100 / 100 100 / 100 100 ML @ 200 mls/hr IV.SIG Q12H [facility] Rx#:[id number] LR 1000 mL Inj 500 ML @ 0 mls/ 500 / 500 hr IV.SIG .Q0M ONE Rx#:[id number] Flagyl 500 MG Inj 100 ML @ 100 200 / 200 200 / 200 mls/hr IV.SIG Q6H [facility] Rx#: [id number] Oral 240 / 240 300 / 300 Output: Urine 500 / 500 300 / 300 Emesis 150 / 150 Other: Date of Last Bowel Movement 05/18/18 05/19/18 05/20/18 # Emeses 3 Narrative: Awake and alert, says he feels better today. Back and hip pain have improved. S1S2, tachycardic, irregularly irregular CTA b/l abd soft, nontender to palpation, bowel sounds present complains of right hip pain and right sided lower back pain. No focal neuro deficits. Urinary Catheter Management Indwelling Urethral Catheter: Cath placed during this visit: no Results Labs CBC & Chem 7: 05/20/18 07:49 05/20/18 07:49 Labs: Microbiology 05/16/18 10:40 Blood - Peripheral Aerobic Blood Culture - Preliminary No growth in 4 days 05/16/18 10:40 Blood - Peripheral Anaerobic Blood Culture - Preliminary No growth in 4 days 05/16/18 10:50 Blood - Peripheral Aerobic Blood Culture - Preliminary No growth in 4 days 05/16/18 10:50 Blood - Peripheral Anaerobic Blood Culture - Preliminary No growth in 4 days Assessment and Plan (1) Acute kidney injury: Code(s): N17.9 - Acute kidney failure, unspecified Status: Acute (2) Chronic kidney disease: Code(s): N18.9 - Chronic kidney disease, unspecified Status: Acute (3) Essential hypertension: Code(s): I10 - Essential (primary) hypertension Status: Chronic (4) Atrial fibrillation: Code(s): I48.91 - Unspecified atrial fibrillation Status: Chronic (5) Diverticulitis large intestine: Code(s): K57.32 - Diverticulitis of large intestine without perforation or abscess without bleeding Status: Acute (6) Normocytic anemia: Code(s): D64.9 - Anemia, unspecified Status: Acute (7) Thrombocytopenia: Code(s): D69.6 - Thrombocytopenia, unspecified Status: Acute Plan This patient is a 78 y/o male with a hx of CAD s/p Cabg, Peripheral Arterial disease s/p b/l iliac stents, DLD, HTN, A fib on Coumadin. Patient hit his right lower ext recently and suffered an abrasion to the right ant hand. He went to an urgent care center and was started on bactrim. The following day he took the medications and 40 minutes later began to feel sick. He had abd pain, and broke out in a rash of the upper and lower exts. He called 911 and diphenhydramine was given and he was brought into the ed. 05/20/18 Afib with rvr Patient evaluated, labs and vitals reviewed. Patient's lower back pain and right hip pain is better today but still a occasionally present. He is still tachycardic with a HR in the 120s - 130s. Restarted on his metoprolol. If no improvement will will give iv push of lopressor. Continue to monitor on telemetry. Pt has low iron, tibc normal, iron sat is low. Started on IV iron by nephrology. Hgb 8.2, no signs of bleeding. Downtrending. Will continue to monitor. Serum cr. is slightly improved since yesterday. 3.0 today. Nephrology following. Abd pain is improved. Continue antibiotics. Patient still gets very tachycardic when he is ambulating. Appears to be afib with rvr. No sob, patient is on room air. Continue to monitor, not yet stable for discharge. Cxs are negative to date. 1. Anaphylaxis 2/2 medication bactrim. 2. Lactic acidosis 2/2 #1 3. Elevated troponin 2/2 #1 4. MICHAEL on CKD Patient was in shock in our icu requiring pressors. Now off of pressors, blood pressure stable Rash has resolved. Now off of benadryl, will give prn. Lactate normalized No significant trend of trops. EKG showed sinus tachy, no acute st or twave changes. Baseline cr unknown to me. Serum cr improving to 3.3 today. Nephrology following, continue IVF, switched to LR, Cl continues to elevate while on NS, Bicarb improved to 20. Monitor stricts ins/outs Avoid nephrotoxic agents. 5. Diverticulitis 6. Right lower ext cellulitis Continue iv antibiotics Abd pain improving. Famotidine bid 6. A fib 7. PAD INR therapeutic Continue coumadin, plavix 8. Metabolic acidosis likely 2/2 MICHAEL Bicarb improved to 20, respiratory rate has improved as well. Nephrology following. Continue antibiotics. Lactate had normalized. Anion gap normal. 9. HTN Started on norvasc. Continue to monitor and adjust if needed. 10. Right hip pain/Right lower back pain Xray shows no fx Given dilaudid 0.5mg iv by nephrology, helped with pain. Cont prn. Once patient is cleared by Nephrology we will plan for discharge. DVT prophylaxis, pt is one Coumadin, INR therapeutic. Transfer pt out of the ICU. Patient is stable. Progress Note: Quality VTE Deep Vein Thrombosis/Pulmonary Embolism Present on Admission: No _ (1) Chronic kidney disease Qualifiers: Chronic kidney disease stage: (2) Atrial fibrillation Qualifiers: Atrial fibrillation type: unspecified Qualified Code(s): I48.91 - Unspecified atrial fibrillation (3) Diverticulitis large intestine Qualifiers: Diverticulitis bleeding: Diverticulitis complication: unspecified complication status
[2018-05-20] MEDS: Metoprolol Tartrate 25 MG Tablet PO SCH ×2 (13:05→21:23)
[2018-05-20] MEDS ORDERED: Metoprolol Inj 5 MG/5 ML Vial IV.PUSH ONE (13:41)
[2018-05-20 22:02] LABS: Hematocrit 23.5 % (39.0-51.0); Hemoglobin 7.7 gm/dL (13.0-17.0)
[2018-05-20] MEDS ORDERED: Sodium Chlor 0.9% Inj 250 ML IV.SIG SCH (23:45)
[2018-05-21 02:43] LABS: Baso % (Auto) 0.5 % (0.0-2.0); Eos # (Auto) 0.4 th/mm3 (0.0-0.4); Eos % (Auto) 6.2 % (0.0-4.0); Hematocrit 22.4 % (39.0-51.0); Hemoglobin 7.5 gm/dL (13.0-17.0); Lymph # (Auto) 1.1 th/mm3 (1.0-4.8); Lymph % (Auto) 18.5 % (9.0-44.0); Mean Corpuscular HGB Conc 33.4 % (32.0-36.0); Mean Corpuscular Volume 83.9 fL (80.0-100.0); Mean Platelet Volume 8.8 fL (7.0-11.0); Mono # (Auto) 0.6 th/mm3 (0.0-0.9); Mono % (Auto) 10.7 % (0.0-8.0); Neut # (Auto) 3.7 th/mm3 (1.8-7.7); Neut % (Auto) 64.1 % (16.0-70.0); Platelet Count 115 th/mm3 (150-450); Red Blood Count 2.67 mil/mm3 (4.50-5.90); Red Cell Distribution Width 16.4 % (11.6-17.2); White Blood Count 5.8 th/mm3 (4.0-11.0)
[2018-05-21 02:58] LABS: Carbon Dioxide 21.8 meq/L (21.0-32.0); INR 3.2 Ratio; Magnesium 1.8 mg/dL (1.5-2.5); Potassium 4.3 meq/L (3.5-5.1); Prothrombin Time 32.2 sec (9.8-11.6)
[2018-05-21 03:00] LABS: Vancomycin,Random 25.1 Comment
[2018-05-21] MEDS: Chlorhexidine Gluconate 2% 1 Pack (2 Cloths) TOPICAL SCH (05:23)
[2018-05-21] MEDS: Insulin NovoLOG Aspart Correctional Sugar Inj SQ SCH (05:24)
[2018-05-21] MEDS: Metoprolol Tartrate 25 MG Tablet PO SCH (09:39)
[2018-05-21] MEDS: amLODIPine 5 MG Tablet PO SCH (09:39)
[2018-05-21] MEDS: Famotidine PF Inj 20 MG/2 ML Vial IV.PUSH SCH (09:40)
[2018-05-21] MEDS: Senna/Docusate Sodium 8.6/50 MG Tablet PO SCH (09:40)
--- NOTE | 2018-05-21 13:46 | P.AMA ---
AMA Note Diagnosis (1) Acute kidney injury: (2) Chronic kidney disease: (3) Essential hypertension: (4) Atrial fibrillation: (5) Diverticulitis large intestine: (6) Normocytic anemia: (7) Thrombocytopenia: Discharge Summary AMA Statement: Patient Kunal Chapa has decided to leave the hospital against medical advice. This patient has the capacity to refuse care and understands the risks of leaving, including permanent disability and/or , and has had an opportunity to ask questions about his/her condition. The patient has been informed that he/she may return for care at any time, and follow up has been arranged/advised.
--- NOTE | 2018-05-21 13:50 | P.DS ---
DS: Providers Date of admission: 05/16/18 12:06 Primary care physician: UNKNOWN Consults: 05/17/18 08:53 Consult to Hospitalist Routine Consulting Provider: Jeff Rangel Reason for Consultation: [place] of care in a.m. 05/18. Admission with severe sepsis secondary to diverticulitis/cellulitis. Acute kidney injury. Notified:: Service Spoke with:: Funmi Date Notified:: 05/17/18 Time Notified:: 09:15 Comments:: waiting on assignment - ML Ordering Provider: SANDRA Consult to Nephrology Routine Consulting Provider: Ryland Orosco Does the patient have a Supervisor Computer Operations who follows them?: No Preferred Nephrology Clerk Of Scales:: Multimedia Engineer Physician Reason for Consultation: Admission with severe sepsis secondary to diverticulitis, cellulitis. Acute kidney injury creatinine currently is from 3 to 4. No history of renal disease. Nonoliguric. Assist with management Notified:: Service Spoke with:: Funmi Date Notified:: 05/17/18 Time Notified:: 09:16 Ordering Provider: SANDRA 05/20/18 23:50 Consult to Gastroenterology Routine Consulting Provider: Bk Butler V Reason for Consultation: GI bleed Notified:: Service Spoke with:: Breana Date Notified:: 05/21/18 Time Notified:: 00:06 Ordering Provider: NAYELY Brief History from admission: This is a 78-year-old male. Date of admission 05/16/2018. Past medical history includes coronary disease status post CABG x4, peripheral vascular disease, hypertension, hyperlipidemia gout and chronic warfarin use. On Sunday, patient had a fall and had an abrasion to the anterior tibial aspect of his right lower extremity. He went to an urgent care and received trimethoprim/sulfamethoxazole 1 tablet twice daily for treatment. He did not take the steroids because overnight he had some abdominal pain/nausea and vomiting which has since resolved. This is consistent diarrhea. He took his first dose of the medicine today within 40 minutes started to develop a rash is itchy and involves his bilateral upper and lower extreme is. Patient emergently called 911 who gave him diphenhydramine, ondansetron and intravenous fluids. Was evaluated to [facility] and received diphenhydramine and famotidine and 1 dose of steroids. Patient became hypotensive and was started on norepinephrine drip intravenously. CT emesis post revealed sigmoid diverticulitis. He has been given vancomycin, aztreonam and metronidazole. Due to multiple creatinine is currently 2.9. Due to his multiple comorbid patient was transferred to the main campus for further evaluation. He is currently been weaned off his vasopressors. We are asked to admit the patient. DS: Diagnosis Discharge Diagnosis (1) Acute kidney injury: Status: Acute (2) Chronic kidney disease: Status: Acute (3) Essential hypertension: Status: Chronic (4) Atrial fibrillation: Status: Chronic (5) Diverticulitis large intestine: Status: Acute (6) Normocytic anemia: Status: Acute (7) Thrombocytopenia: Status: Acute DS: Summary This patient is a 78 y/o male with a hx of CAD s/p Cabg, Peripheral Arterial disease s/p b/l iliac stents, DLD, HTN, A fib on Coumadin. Patient hit his right lower ext recently and suffered an abrasion to the right ant hand. He went to an urgent care center and was started on bactrim. The following day he took the medications and 40 minutes later began to feel sick. He had abd pain, and broke out in a rash of the upper and lower exts. He called 911 and diphenhydramine was given and he was brought into the ed. 05/21/18 Afib with rvr Patient evaluated, labs and vitals reviewed. Patient's lower back pain and right hip pain is better today but still a occasionally present. He is still tachycardic with a HR in the 120s - 130s. Restarted on his metoprolol. Plan was to give another IV push of lopressor today and possibly start a cardizem drip and consult cardiology. Plan was discussed with the patient. He said he had to leave to [place] and was going to leave against medical advice. Risk of leaving am were discussed with the patient however he was adamant about leaving. He says he has all of his medications with him and will continue to take them. 1. Anaphylaxis 2/2 medication bactrim. 2. Lactic acidosis 2/2 #1 3. Elevated troponin 2/2 #1 4. MICHAEL on CKD Patient was in shock in our icu requiring pressors. Now off of pressors, blood pressure stable Rash has resolved. Now off of benadryl, will give prn. Lactate normalized No significant trend of trops. EKG showed sinus tachy, no acute st or twave changes. Baseline cr unknown to me. Serum cr improving to 3.3 today. Nephrology following, continue IVF, switched to LR, Cl continues to elevate while on NS, Bicarb improved to 20. Monitor stricts ins/outs Avoid nephrotoxic agents. 5. Diverticulitis 6. Right lower ext cellulitis Continue iv antibiotics Abd pain improving. Famotidine bid 6. A fib 7. PAD INR therapeutic Continue coumadin, plavix 8. Metabolic acidosis likely 2/2 MICHAEL Bicarb improved to 20, respiratory rate has improved as well. Nephrology following. Continue antibiotics. Lactate had normalized. Anion gap normal. 9. HTN Started on norvasc. Continue to monitor and adjust if needed. 10. Right hip pain/Right lower back pain Xray shows no fx Given dilaudid 0.5mg iv by nephrology, helped with pain. Cont prn. Once patient is cleared by Nephrology we will plan for discharge. DVT prophylaxis, pt is one Coumadin, INR therapeutic. Time Spent with Patient Total time spent providing and/or coordinating discharge services: Greater than 30 minutes Quality: VTE Deep Vein Thrombosis/Pulmonary Embolism Present on Admission: No Exam Narrative Exam Narrative: S1S2, tachycardic, irregularly irregular CTA b/l abd soft, nontender to palpation, bowel sounds present complains of right hip pain and right sided lower back pain. No focal neuro deficits. Results Labs on day of discharge: Labs from last 24 hours 05/21/18 05/21/18 05/21/18 05:24 02:23 02:23 WBC 5.8 RBC 2.67 L Hgb 7.5 L Hct 22.4 L MCV 83.9 MCH 28.0 MCHC 33.4 RDW 16.4 Plt Count 115 L MPV 8.8 Neut % (Auto) 64.1 Lymph % (Auto) 18.5 Mccreary % (Auto) 10.7 H Eos % (Auto) 6.2 H Baso % (Auto) 0.5 Neut # (Auto) 3.7 Lymph # (Auto) 1.1 Mccreary # (Auto) 0.6 Eos # (Auto) 0.4 Baso # (Auto) 0.0 WBC Differential . Differential Comment Auto diff final PT INR Sodium 142 Potassium 4.3 Chloride 112 H Carbon Dioxide 21.8 Anion Gap 8 BUN 58 H Creatinine 2.55 H Estimated GFR 25 L POC Glucose 103 Random Glucose 103 Calcium 8.0 L Magnesium 1.8 Random Vancomycin 25.1 Blood Type Blood Type Recheck Antibody Screen MTS Gel Crossmatch 05/21/18 05/21/18 05/20/18 02:23 00:45 23:42 WBC RBC Hgb Hct MCV MCH MCHC RDW Plt Count MPV Neut % (Auto) Lymph % (Auto) Mccreary % (Auto) Eos % (Auto) Baso % (Auto) Neut # (Auto) Lymph # (Auto) Mccreary # (Auto) Eos # (Auto) Baso # (Auto) WBC Differential Differential Comment PT 32.2 H INR 3.2 Sodium Potassium Chloride Carbon Dioxide Anion Gap BUN Creatinine Estimated GFR POC Glucose 122 H Random Glucose Calcium Magnesium Random Vancomycin Blood Type A Positive Blood Type Recheck Required Antibody Screen Negative MTS Gel Crossmatch See Detail 05/20/18 05/20/18 21:28 17:53 WBC RBC Hgb 7.7 L Hct 23.5 L MCV MCH MCHC RDW Plt Count MPV Neut % (Auto) Lymph % (Auto) Mccreary % (Auto) Eos % (Auto) Baso % (Auto) Neut # (Auto) Lymph # (Auto) Mccreary # (Auto) Eos # (Auto) Baso # (Auto) WBC Differential Differential Comment PT INR Sodium Potassium Chloride Carbon Dioxide Anion Gap BUN Creatinine Estimated GFR POC Glucose 128 H Random Glucose Calcium Magnesium Random Vancomycin Blood Type Blood Type Recheck Antibody Screen MTS Gel Crossmatch Impressions ITS Impressions Venous Doppler Study 05/16/18 00:00 CONCLUSION: 1. The study is negative for bilateral lower extremity deep venous thrombosis. 2. Probable hematomas within the popliteal fossa bilaterally likely postsurgical. 3. 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 Chest X-Ray 05/16/18 10:17 CONCLUSION: The lungs are clear. Abdomen/Pelvis CT 05/16/18 11:55 CONCLUSION: Findings of diverticulitis without abscess at the junction of descending and sigmoid colon Bilateral iliac artery stents as above. 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 CT angiography could be performed to further evaluate this if clinically indicated Abdomen/Bladder Ultrasound 05/16/18 12:11 CONCLUSION: 1. Echogenic kidneys characteristic of medical renal disease. Right renal cysts. No hydronephrosis. Thickened bladder wall. Hip X-Ray 05/19/18 00:00 CONCLUSION: Severely limited, no fracture Discharge Plan Discharge Disposition Patient Disposition: 07 Against Medical Advice Discharge Condition Condition: Serious Discharge Order Discharge Orders: AMA Discharge (Routine); Ordered 05/21/18 Ordered By: Jeff Rangel Discharge Details Diagnosis: Septic shock, Cellulitis, Renal failure Physicians Team ED Provider: Juwan Perez Primary Care Provider: UNKNOWN, Attending Provider: Jeff Rangel Other Providers: Ryland Orosco ; Bk Butler V Rxs /Orders / Referrals /Forms Prescriptions: No Action cilostazol 100 mg Tablet 100 mg PO BID RF: 0 lisinopril-hydrochlorothiazide 20-12.5 mg Tablet 1 tab PO BID RF: 0 clopidogrel 75 mg Tablet 75 mg PO DAILY RF: 0 simvastatin 40 mg Tablet 40 mg PO HS RF: 0 warfarin 2 mg Tablet 2 mg PO DAILY RF: 0 metoprolol tartrate 50 mg Tablet 50 mg PO BID RF: 0 nitroglycerin 0.4 mg Tablet, Sublingual 0.4 mg SUBLINGUAL Q5-15M PRN (Reason: Chest Pain) RF: 0 allopurinol 300 mg Tablet 300 mg PO 3XW RF: 0 Referrals: UNKNOWN, [Primary Care Provider] - See Instructions Discharge Interventions Interventions: Discharge Planning - Case Management Last Done: 05/17/18 17:43 Status ED Status: Left Department Discharge Information Discharge Date/Time: 05/21/18 10:35
--- NOTE | 2018-05-21 20:27 | ECG ---
Date Performed: 05/20/2018 Time Performed: 12:30:39 PTAGE: 78 years EKG: SINUS TACHYCARDIA INFERIOR MYOCARDIAL INFARCTION , OF INDETERMINATE AGE ABNORMAL ECG PREVIOUS TRACING : 05/16/2018 13.07 Since the previous tracing, no significant change noted DOCTOR: Humaira Tovar Interpretating Date/Time 05/21/2018 20:25:09
== END 2018-05-21 10:35 | disposition left against medical advice (07) | DRG 871 ==
LOC: PHED 09:55 → PHEDA 12:06 → HIMC 15:30
PROVIDERS: ADMIT Hospitalist; ATTEND Hospitalist
DX: R21 Rash and other nonspecific skin eruption; D63.1 Anemia in chronic kidney disease; Z88.0 Allergy status to penicillin; W19.XXXA Unspecified fall, initial encounter; T37.0X5A Adverse effect of sulfonamides, initial encounter; Z79.02 Long term (current) use of antithrombotics/antiplatelets; I13.0 Hypertensive heart and chronic kidney disease with heart failure and stage 1 through stage 4 chronic kidney disease, or unspecified chronic kidney disease; M54.5 Low back pain; Z82.3 Family history of stroke; R73.9 Hyperglycemia, unspecified; D69.6 Thrombocytopenia, unspecified; S80.811A Abrasion, right lower leg, initial encounter; I48.2 Chronic atrial fibrillation; N28.1 Cyst of kidney, acquired; N17.9 Acute kidney failure, unspecified; K57.33 Diverticulitis of large intestine without perforation or abscess with bleeding; R53.1 Weakness; Z88.5 Allergy status to narcotic agent; Z95.1 Presence of aortocoronary bypass graft; Z79.01 Long term (current) use of anticoagulants; I25.10 Atherosclerotic heart disease of native coronary artery without angina pectoris; E87.2 Acidosis; I82.812 Embolism and thrombosis of superficial veins of left lower extremity; Z95.820 Peripheral vascular angioplasty status with implants and grafts; N18.9 Chronic kidney disease, unspecified; I50.9 Heart failure, unspecified; M25.551 Pain in right hip; I77.9 Disorder of arteries and arterioles, unspecified; A41.9 Sepsis, unspecified organism; I71.4 Abdominal aortic aneurysm, without rupture; R65.21 Severe sepsis with septic shock; L03.115 Cellulitis of right lower limb; E78.5 Hyperlipidemia, unspecified; Z88.2 Allergy status to sulfonamides; M10.9 Gout, unspecified
CPT/HCPCS: 36430; 36600; 71010; 71045; 73501; 74176; 76775; 76937; 80048; 80053; 80202; 81001; 82550; 82552; 82570; 82728; 82805; 82948; 82962; 83540; 83550; 83605; 83735; 84100; 84165; 84300; 84484; 85014; 85018; 85025; 85610; 85730; 86038; 86850; 86900; 86901; 86923; 87040; 87205; 87275; 87276; 87641; 87804; 90761; 90774; 90775; 93005; 93970; 94150; 96361; 96374; 96375; 97110; 97116; 97162; 99291; C8952; J1100; J1170; J1200; J1644; J1756; J1815; J2405; J2930; J3370; J7030; J7040; J7120; P9016